=== PATIENT | male | born 1955 | race American Indian/Alaskan Native ===

== ENCOUNTER 2021-04-30 10:42 | Emergency (ER) | payer MEDICARE ==
--- NOTE | 2021-04-30 11:18 | Emergency Department Report ---
HPI - General Time Seen by Provider: 04/30/21 10:50 - HPI HPI: Room 25 The patient is a 65-year-old male present with a chief complaint of shortness of breath. The patient states prior to arrival he had fallen asleep in his rocking chair and he awakened feeling short of breath gasping for air. Patient denied chest pain or pain of any type. Patient states he tried to stand up but felt dizzy prompting him to call 911. Patient was transported to the ED and the patient currently denies shortness of breath. Patient has a history of dementia and is unable to tell me how long he was symptomatic. I asked the patient if his symptoms resolved before he arrived to the emergency department and the patient replies "I do not know." ED Past Medical Hx - Past Medical History Hx Hypertension: Yes Hx Diabetes: Yes Hx Dementia: Yes - Surgical History Additional Surgical History: Large ex lap wound present but patient is unaware of what surgery was performed and for what reason - Family History Family history: no significant - Social History Smoking Status: Former Smoker (None x15 years) Substance Use Type: Marijuana - Medications Home Medications: Home Medications Medication Instructions Recorded Confirmed Last Taken Type Meclizine [Antivert] 25 mg PO TID PRN #20 tablet 04/30/21 Unknown Rx ED Review of Systems ROS: Stated complaint: SOB/DIZZINESS Other details as noted in HPI Constitutional: no symptoms reported Eyes: denies: eye pain ENT: denies: throat pain Respiratory: shortness of breath Cardiovascular: denies: chest pain Endocrine: no symptoms reported Gastrointestinal: denies: abdominal pain Genitourinary: denies: dysuria Musculoskeletal: denies: back pain Neurological: denies: headache Physical Exam - Physical Exam Physical Exam: GENERAL: The patient is well-developed well-nourished male lying on stretcher not appearing to be in acute distress. [] HEENT: Normocephalic. Atraumatic. Extraocular motions are intact. Patient has moist mucous membranes. NECK: Supple. Trachea midline CHEST/LUNGS: Clear to auscultation. There is no respiratory distress noted. HEART/CARDIOVASCULAR: Regular. There is no tachycardia. There is no gallop rub or murmur. ABDOMEN: Abdomen is soft, nontender. Patient has normal bowel sounds. There is no abdominal distention. SKIN: There is no rash. There is no edema. There is no diaphoresis. NEURO: The patient is awake, alert, and oriented. The patient is cooperative. The patient has no focal neurologic deficits. The patient has normal speech. Cranial nerves II through XII grossly intact. GCS 15 MUSCULOSKELETAL: There is no evidence of acute injury. ED Medical Decision Making - Lab Data Result diagrams: 04/30/21 11:11 04/30/21 11:11 Laboratory Tests 04/30/21 04/30/21 04/30/21 11:03 11:11 11:11 WBC 4.5 RBC 4.78 Hgb 14.0 Hct 41.9 MCV 88 MCH 29 MCHC 34 RDW 14.2 Plt Count 235 Lymph % (Auto) 28.9 [place] % (Auto) 13.4 H Eos % (Auto) 2.2 Baso % (Auto) 0.9 Lymph # (Auto) 1.3 [place] # (Auto) 0.6 Eos # (Auto) 0.1 Baso # (Auto) 0.0 Seg Neutrophils % 54.6 Seg Neutrophils # 2.4 D-Dimer 247.74 H Sodium Potassium Chloride Carbon Dioxide Anion Gap BUN Creatinine Estimated GFR BUN/Creatinine Ratio Glucose POC Glucose 138 H Calcium Total Bilirubin AST ALT Alkaline Phosphatase Total Creatine Kinase CK-MB (CK-2) CK-MB (CK-2) Rel Index Troponin T NT-Pro-B Natriuret Pep Total Protein Albumin Albumin/Globulin Ratio 04/30/21 04/30/21 04/30/21 11:11 15:14 15:27 WBC RBC Hgb Hct MCV MCH MCHC RDW Plt Count Lymph % (Auto) [place] % (Auto) Eos % (Auto) Baso % (Auto) Lymph # (Auto) [place] # (Auto) Eos # (Auto) Baso # (Auto) Seg Neutrophils % Seg Neutrophils # D-Dimer Sodium 137 Potassium 4.3 Chloride 99.4 Carbon Dioxide 26 Anion Gap 16 BUN 6 L Creatinine 0.8 Estimated GFR > 60 BUN/Creatinine Ratio 8 Glucose 129 H POC Glucose 86 Calcium 10.5 H Total Bilirubin 0.30 AST 19 ALT 24 Alkaline Phosphatase 84 Total Creatine Kinase 117 CK-MB (CK-2) < 1.0 CK-MB (CK-2) Rel Index 0.8 Troponin T < 0.010 < 0.010 NT-Pro-B Natriuret Pep 16.00 Total Protein 7.6 Albumin 4.5 Albumin/Globulin Ratio 1.5 - EKG Data -: EKG Interpreted by Me EKG shows normal: sinus rhythm Rate: normal - EKG Data When compared to previous EKG there are: previous EKG unavailable Interpretation: other (No ischemic changes seen) - Radiology Data Radiology results: report reviewed (CT chest), image reviewed (Chest x-ray, CT chest) interpreted by me: Chest x-ray-no definite focal infiltrates, no pneumothorax. No foreign body seen [facility] [address] [id number] Cat Scan Report Signed Patient: MINISTERIO ZAVALA MR#: [id number] : 1955 Acct:[id number] Age/Sex: 65 / M ADM Date: 04/30/21 Loc: ED Attending Dr: Ordering Physician: SIHA POSADAS MD Date of Service: 04/30/21 Procedure(s): CT angio chest Accession Number(s): [id number] cc: ISHA POSADAS MD CTA CHEST WITH CONTRAST INDICATION : Shortness of breath OMNI 350 100ML . TECHNIQUE: Axial imaging performed through the chest, with contrast bolus timing set to maximize opacification of the pulmonary arteries. Sagittal and coronal reformatted images. 3-plane MIP reformatted images were obtained. All CT scans at this location are performed using CT dose reduction for ALARA by means of automated exposure control. 100 mL of intravenous contrast administered. COMPARISON: None FINDINGS: Bolus: Contrast bolus timing is adequate. PTE: No filling defect is present to suggest PTE. Mediastinum: Heart and great vessels appear normal. No pathologic mediastinal adenopathy. Lungs: The lungs are clear with no evidence for infiltrate, pleural fluid or pneumothorax. Minimal emphysematous changes are noted in the upper lobes. Bones: Degenerative changes in the spine with nothing acute. Upper abdomen: Limited imaging of the upper abdomen shows nothing acute. IMPRESSION: Negative for PTE. Clear lungs. Minimal emphysematous changes. Signer Name: Glen Gonzalez Jr, MD Signed: 04/30/2021 2:55 PM Workstation Name: [id number] Transcribed By: TTR Dictated By: GLEN GONZALEZ JR, MD Electronically Authenticated By: GLEN GONZALEZ JR, MD Signed Date/Time: 04/30/21 1915 DD/ 1446 TD/TT: Print Cancel - Differential Diagnosis Shortness of breath, ACS, bronchitis, PE, dysrhythmia Critical care attestation.: If time is entered above; I have spent that time in minutes in the direct care of this critically ill patient, excluding procedure time. ED Disposition Clinical Impression: Vertigo, Dementia Disposition: - TO HOME OR SELFCARE Is pt being admited?: No Does the pt Need Aspirin: No Condition: Stable Instructions: Dizziness, Ueah-hy-Snpy Additional Instructions: Return to the emergency department should you develop worsening symptoms, inability to tolerate food or liquids, high fever or any other concerns Prescriptions: Meclizine [Antivert] 25 mg PO TID PRN #20 tablet PRN Reason: Vertigo Referrals: MARGARITA SOLIS MD [Primary Care Provider] - 3-5 Days
--- NOTE | 2021-04-30 11:25 | XRay Report ---
CHEST 1 VIEW 04/30/2021 11:20 AM INDICATION / CLINICAL INFORMATION: Shortness of breath. COMPARISON: None available. FINDINGS: SUPPORT DEVICES: None. HEART / MEDIASTINUM: No significant abnormality. LUNGS / PLEURA: No significant pulmonary or pleural abnormality. No pneumothorax. ADDITIONAL FINDINGS: No significant additional findings. IMPRESSION: 1. No acute findings. Signer Name: Hosea Haro MD Signed: 04/30/2021 11:21 AM Workstation Name: [id number]
[2021-04-30 11:48] LABS: Alanine Aminotransferase 24 units/L (7-56); Albumin 4.5 g/dL (3.9-5); BUN/Creatinine Ratio 8; Blood Urea Nitrogen 6 mg/dL (9-20); Calcium 10.5 mg/dL (8.4-10.2); Hemolysis Index 54
[2021-04-30 11:51] LABS: Basophils % (Auto) 0.9 % (0.0-1.8); Eosinophils # (Auto) 0.1 K/mm3 (0.0-0.4); Eosinophils % (Auto) 2.2 % (0.0-4.3); Hematocrit 41.9 % (35.5-45.6); Lymphocytes # (Auto) 1.3 K/mm3 (1.2-5.4); Lymphocytes % (Auto) 28.9 % (13.4-35.0); Mean Corpuscular HGB Conc 34 % (32-34); Mean Corpuscular Volume 88 fl (84-94); Monocytes # (Auto) 0.6 K/mm3 (0.0-0.8); Monocytes % (Auto) 13.4 % (0.0-7.3); Platelet Count 235 K/mm3 (140-440); Red Blood Count 4.78 M/mm3 (3.65-5.03); Red Cell Distribution Width 14.2 % (13.2-15.2)
[2021-04-30 11:57] LABS: Creatine Kinase MB < 1.0 ng/mL (0.0-4.0)
--- NOTE | 2021-04-30 14:59 | Cat Scan Report ---
CTA CHEST WITH CONTRAST INDICATION : Shortness of breath OMNI 350 100ML . TECHNIQUE: Axial imaging performed through the chest, with contrast bolus timing set to maximize opa cification of the pulmonary arteries. Sagittal and coronal reformatted images. 3-plane MIP reformatte d images were obtained. All CT scans at this location are performed using CT dose reduction for ALAR A by means of automated exposure control. 100 mL of intravenous contrast administered. COMPARISON: None FINDINGS: Bolus: Contrast bolus timing is adequate. PTE: No filling defect is present to suggest PTE. Mediastinum: Heart and great vessels appear normal. No pathologic mediastinal adenopathy. Lungs: The lungs are clear with no evidence for infiltrate, pleural fluid or pneumothorax. Minimal e mphysematous changes are noted in the upper lobes. Bones: Degenerative changes in the spine with nothing acute. Upper abdomen: Limited imaging of the upper abdomen shows nothing acute. IMPRESSION: Negative for PTE. Clear lungs. Minimal emphysematous changes. Signer Name: Glen Gonzalez Jr, MD Signed: 04/30/2021 2:55 PM Workstation Name: [id number]
[2021-04-30] MEDS ORDERED: MECLIZINE 25 MG TAB PO ONE (16:44)
--- NOTE | 2021-04-30 20:30 | Cat Scan Report ---
CT head/brain wo con INDICATION: Dizziness. TECHNIQUE: Routine CT head. All CT scans at this location are performed using CT dose reduction for A TAMELA by means of automated exposure control. COMPARISON: None. FINDINGS: Intracranial: Mae-white matter differentiation is maintained. No intracranial hemorrhage. No extra a xial collection. No hydrocephalus. No herniation. Sinuses: Paranasal sinuses and mastoid air cells are essentially clear. Orbits: Globes are intact. Calvarium: No acute fracture. IMPRESSION: 1. No acute intracranial abnormality. Signer Name: Joaquín Rhodes MD Signed: 04/30/2021 8:25 PM Workstation Name: [id number]
[2021-04-30 21:10] VITALS: BP 117/59
--- NOTE | 2021-05-02 12:12 | Electrocardiograph Report ---
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
== END 2021-04-30 22:21 | disposition home or self-care (01) ==
LOC: ED 10:42
DX: R42 Dizziness and giddiness (principal); F03.90 Unspecified dementia, unspecified severity, without behavioral disturbance, psychotic disturbance, mood disturbance, and anxiety; I10 Essential (primary) hypertension; E11.9 Type 2 diabetes mellitus without complications; F12.10 Cannabis abuse, uncomplicated; Z87.891 Personal history of nicotine dependence; Z79.899 Other long term (current) drug therapy
CPT/HCPCS: 36415; 70450; 71045; 71275; 80053; 82550; 82553; 82962; 83880; 84484; 85025; 85379; 93005; 99285; Q9967

== ENCOUNTER 2021-08-10 10:13 | Emergency (ER) | payer MEDICARE ==
[2021-08-10] MEDS ORDERED: DEXTROSE 50% IN WATER (25GM) 50 ML VIAL IV PRN (10:42)
--- NOTE | 2021-08-10 10:54 | Emergency Department Report ---
ED General Adult HPI - General Chief complaint: Weakness Stated complaint: SLUTTERING/WEAKNESS PUI?: No Time Seen by Provider: 08/10/21 10:40 Source: patient, family, EMS (Verbal report received from emergency medical ser vices. EMS documentation not available at time of chart dictation ), RN notes reviewed, old records reviewed Mode of arrival: Stretcher Limitations: Other (Patient is demented and a poor historian) - History of Present Illness Initial comments: The patient is a 65-year-old gentleman. The patient has a history of dementia and diabetes. He follows with the [facility] medical [facility]. Most of the history is obtained from EMS, and by speaking to his , Ms. Erna Gomes. Apparently, the patient was confused this morning, and stuttering. He was also found to have evidence of hypoglycemia. As per his , he is currently seeing an outpatient neurologist, it was recently started on Seroquel/quetiapine for stuttering, dementia, and depression. denies headache, chest pain, shortness of breath, nausea, vomiting, diarrhea, fevers and chills and urinary symptoms. In the emergency room, his corroborates that the patient appears to be at his demented baseline. The patient himself is pleasantly confused. He denies physical pain. The patient is not able to describe qualitative nature of symptoms, exacerbating factors, relieving factors or aggravating factors. EMS reported Accu-Chek was low in the field. In the emergency room, Accu-Chek is within acceptable limits. -: This morning Consistency: now resolved Improves with: medication Associated Symptoms: denies other symptoms - Related Data Home Medications Medication Instructions Recorded Confirmed Last Taken AtorvaSTATin 40 mg PO HS 08/10/21 08/10/21 Unknown Lisinopril 20 mg PO DAILY 08/10/21 08/10/21 Unknown QUEtiapine 25 mg PO HS 08/10/21 08/10/21 Unknown amLODIPine 10 mg PO DAILY 08/10/21 08/10/21 Unknown metFORMIN 500 mg PO BID 08/10/21 08/10/21 Unknown Allergies Allergy/AdvReac Type Severity Reaction Status Date / Time No Known Allergies Allergy Unverified 04/30/21 12:44 ED Review of Systems ROS: Stated complaint: SLUTTERING/WEAKNESS Other details as noted in HPI Comment: Per Constitutional: denies: fever Eyes: denies: eye discharge ENT: denies: epistaxis Respiratory: denies: cough Cardiovascular: denies: chest pain Gastrointestinal: denies: abdominal pain Genitourinary: denies: dysuria, frequency Neurological: confusion (Baseline) ED Past Medical Hx - Past Medical History Previous Medical History?: Yes Hx Hypertension: Yes Hx Diabetes: Yes Hx Dementia: Yes Additional medical history: dementia, vertigo - Surgical History Past Surgical History?: Yes Additional Surgical History: Large ex lap wound present but patient is unaware of what surgery was performed and for what reason - Social History Smoking Status: Former Smoker (None x15 years) Substance Use Type: Marijuana - Medications Home Medications: Home Medications Medication Instructions Recorded Confirmed Last Taken Type AtorvaSTATin 40 mg PO HS 08/10/21 08/10/21 Unknown History Lisinopril 20 mg PO DAILY 08/10/21 08/10/21 Unknown History QUEtiapine 25 mg PO HS 08/10/21 08/10/21 Unknown History amLODIPine 10 mg PO DAILY 08/10/21 08/10/21 Unknown History metFORMIN 500 mg PO BID 08/10/21 08/10/21 Unknown History ED Physical Exam - General Limitations: Other (Demented and confused) General appearance: alert, in no apparent distress - Head Head exam: Present: atraumatic, normocephalic - Eye Eye exam: Present: normal appearance, EOMI. Absent: nystagmus - ENT ENT exam: Present: normal exam, normal orophraynx, mucous membranes moist, normal external ear exam - Neck Neck exam: Present: normal inspection, full ROM. Absent: tenderness, meningismus - Respiratory Respiratory exam: Present: normal lung sounds bilaterally. Absent: respiratory distress, wheezes, rales, rhonchi, stridor, decreased breath sounds - Cardiovascular Cardiovascular Exam: Present: regular rate, normal rhythm, normal heart sounds. Absent: bradycardia, tachycardia, irregular rhythm, systolic murmur, diastolic murmur, rubs, gallop - GI/Abdominal GI/Abdominal exam: Present: soft. Absent: distended, tenderness, guarding, rebound, rigid, pulsatile mass - Rectal Rectal exam: Present: deferred - exam: Present: normal inspection External exam: Present: normal external exam, other (Chaperoned by nurse Nathan Nesbitt) - Extremities Exam Extremities exam: Present: normal inspection, full ROM, other (2+ pulses noted in the bilateral upper and lower extremities. There is no palpable cord. negative Homans sign. Muscular compartments are soft. The pelvis is stable.). Absent: pedal edema, calf tenderness - Back Exam Back exam: Present: normal inspection, full ROM. Absent: tenderness, CVA tenderness (R), CVA tenderness (L), muscle spasm, vertebral tenderness, rash noted - Neurological Exam Neurological exam: Present: altered (Patient is alert to name. Does not know the month. Follows commands. Knows that he is at a hospital.), normal gait, other (2+ pulses noted in the bilateral upper and lower extremities. There is no palpable cord. negative Homans sign. Muscular compartments are soft. The pelvis is stable.). Absent: motor sensory deficit - Psychiatric Psychiatric exam: Present: anxious - Skin Skin exam: Present: warm, dry, intact, normal color. Absent: rash ED Course Vital Signs 08/10/21 08/10/21 10:59 11:28 Temperature 98.8 F 98.9 F Pulse Rate 86 Respiratory 16 Rate Blood Pressure 149/82 [Left] O2 Sat by Pulse 98 Oximetry ED Medical Decision Making - Lab Data Result diagrams: 08/10/21 11:32 08/10/21 11:32 Vital Signs 08/10/21 08/10/21 10:59 11:28 Temperature 98.8 F 98.9 F Pulse Rate 86 Respiratory 16 Rate Blood Pressure 149/82 [Left] O2 Sat by Pulse 98 Oximetry Lab Results 08/10/21 08/10/21 08/10/21 Range/Units 11:22 11:26 11:32 WBC (4.5-11.0) K/mm3 RBC (3.65-5.03) M/mm3 Hgb (11.8-15.2) gm/dl Hct (35.5-45.6) % MCV (84-94) fl MCH (28-32) pg MCHC (32-34) % RDW (13.2-15.2) % Plt Count (140-440) K/mm3 Lymph % (Auto) (13.4-35.0) % [place] % (Auto) (0.0-7.3) % Eos % (Auto) (0.0-4.3) % Baso % (Auto) (0.0-1.8) % Lymph # (Auto) (1.2-5.4) K/mm3 [place] # (Auto) (0.0-0.8) K/mm3 Eos # (Auto) (0.0-0.4) K/mm3 Baso # (Auto) (0.0-0.1) K/mm3 Seg Neutrophils % (40.0-70.0) % Seg Neutrophils # (1.8-7.7) K/mm3 PT (12.2-14.9) Sec. INR (0.87-1.13) Sodium 136 L (137-145) mmol/L Potassium 4.2 (3.6-5.0) mmol/L Chloride 100.4 (98-107) mmol/L Carbon Dioxide 24 (22-30) mmol/L Anion Gap 16 mmol/L BUN 8 L (9-20) mg/dL Creatinine 0.8 (0.8-1.3) mg/dL Estimated GFR > 60 ml/min BUN/Creatinine Ratio 10 % Glucose 170 H (75-100) mg/dL POC Glucose 157 H (70-105) mg/dL Lactic Acid (0.7-2.0) mmol/L Calcium 10.0 (8.4-10.2) mg/dL Magnesium (1.7-2.3) mg/dL Total Bilirubin 0.30 (0.1-1.2) mg/dL AST 13 (5-40) units/L ALT 24 (7-56) units/L Alkaline Phosphatase 92 (35-129) units/L Total Creatine Kinase (55-170) units/L Troponin T (0.00-0.029) ng/mL Total Protein 7.9 (6.3-8.2) g/dL Albumin 4.3 (3.9-5) g/dL Albumin/Globulin Ratio 1.2 % TSH (0.270-4.200) mlU/mL Urine Color Straw (Yellow) Urine Turbidity Clear (Clear) Urine pH 8.0 H (5.0-7.0) Ur Specific [place] 1.006 (1.003-1.030) Urine Protein <15 mg/dl (Negative) mg/dL Urine Glucose (UA) Neg (Negative) mg/dL Urine Ketones Neg (Negative) mg/dL Urine Blood Neg (Negative) Urine Nitrite Neg (Negative) Urine Bilirubin Neg (Negative) Urine Urobilinogen < 2.0 (<2.0) mg/dL Ur Leukocyte Esterase Neg (Negative) Urine WBC (Auto) < 1.0 (0.0-6.0) /HPF Urine RBC (Auto) 1.0 (0.0-6.0) /HPF Salicylates (2.8-20.0) mg/dL Acetaminophen (10.0-30.0) ug/mL 08/10/21 08/10/21 08/10/21 Range/Units 11:32 11:32 11:32 WBC 4.4 L (4.5-11.0) K/mm3 RBC 4.94 (3.65-5.03) M/mm3 Hgb 14.3 (11.8-15.2) gm/dl Hct 43.0 (35.5-45.6) % MCV 87 (84-94) fl MCH 29 (28-32) pg MCHC 33 (32-34) % RDW 13.6 (13.2-15.2) % Plt Count 285 (140-440) K/mm3 Lymph % (Auto) 28.7 (13.4-35.0) % [place] % (Auto) 11.0 H (0.0-7.3) % Eos % (Auto) 3.0 (0.0-4.3) % Baso % (Auto) 2.2 H (0.0-1.8) % Lymph # (Auto) 1.3 (1.2-5.4) K/mm3 [place] # (Auto) 0.5 (0.0-0.8) K/mm3 Eos # (Auto) 0.1 (0.0-0.4) K/mm3 Baso # (Auto) 0.1 (0.0-0.1) K/mm3 Seg Neutrophils % 55.1 (40.0-70.0) % Seg Neutrophils # 2.4 (1.8-7.7) K/mm3 PT 13.8 (12.2-14.9) Sec. INR 0.96 (0.87-1.13) Sodium (137-145) mmol/L Potassium (3.6-5.0) mmol/L Chloride (98-107) mmol/L Carbon Dioxide (22-30) mmol/L Anion Gap mmol/L BUN (9-20) mg/dL Creatinine (0.8-1.3) mg/dL Estimated GFR ml/min BUN/Creatinine Ratio % Glucose (75-100) mg/dL POC Glucose (70-105) mg/dL Lactic Acid (0.7-2.0) mmol/L Calcium (8.4-10.2) mg/dL Magnesium 1.90 (1.7-2.3) mg/dL Total Bilirubin (0.1-1.2) mg/dL AST (5-40) units/L ALT (7-56) units/L Alkaline Phosphatase (35-129) units/L Total Creatine Kinase 103 (55-170) units/L Troponin T < 0.010 (0.00-0.029) ng/mL Total Protein (6.3-8.2) g/dL Albumin (3.9-5) g/dL Albumin/Globulin Ratio % TSH (0.270-4.200) mlU/mL Urine Color (Yellow) Urine Turbidity (Clear) Urine pH (5.0-7.0) Ur Specific [place] (1.003-1.030) Urine Protein (Negative) mg/dL Urine Glucose (UA) (Negative) mg/dL Urine Ketones (Negative) mg/dL Urine Blood (Negative) Urine Nitrite (Negative) Urine Bilirubin (Negative) Urine Urobilinogen (<2.0) mg/dL Ur Leukocyte Esterase (Negative) Urine WBC (Auto) (0.0-6.0) /HPF Urine RBC (Auto) (0.0-6.0) /HPF Salicylates (2.8-20.0) mg/dL Acetaminophen (10.0-30.0) ug/mL 08/10/21 08/10/21 08/10/21 Range/Units 11:32 11:32 11:32 WBC (4.5-11.0) K/mm3 RBC (3.65-5.03) M/mm3 Hgb (11.8-15.2) gm/dl Hct (35.5-45.6) % MCV (84-94) fl MCH (28-32) pg MCHC (32-34) % RDW (13.2-15.2) % Plt Count (140-440) K/mm3 Lymph % (Auto) (13.4-35.0) % [place] % (Auto) (0.0-7.3) % Eos % (Auto) (0.0-4.3) % Baso % (Auto) (0.0-1.8) % Lymph # (Auto) (1.2-5.4) K/mm3 [place] # (Auto) (0.0-0.8) K/mm3 Eos # (Auto) (0.0-0.4) K/mm3 Baso # (Auto) (0.0-0.1) K/mm3 Seg Neutrophils % (40.0-70.0) % Seg Neutrophils # (1.8-7.7) K/mm3 PT (12.2-14.9) Sec. INR (0.87-1.13) Sodium (137-145) mmol/L Potassium (3.6-5.0) mmol/L Chloride (98-107) mmol/L Carbon Dioxide (22-30) mmol/L Anion Gap mmol/L BUN (9-20) mg/dL Creatinine (0.8-1.3) mg/dL Estimated GFR ml/min BUN/Creatinine Ratio % Glucose (75-100) mg/dL POC Glucose (70-105) mg/dL Lactic Acid (0.7-2.0) mmol/L Calcium (8.4-10.2) mg/dL Magnesium (1.7-2.3) mg/dL Total Bilirubin (0.1-1.2) mg/dL AST (5-40) units/L ALT (7-56) units/L Alkaline Phosphatase (35-129) units/L Total Creatine Kinase (55-170) units/L Troponin T (0.00-0.029) ng/mL Total Protein (6.3-8.2) g/dL Albumin (3.9-5) g/dL Albumin/Globulin Ratio % TSH 1.030 (0.270-4.200) mlU/mL Urine Color (Yellow) Urine Turbidity (Clear) Urine pH (5.0-7.0) Ur Specific [place] (1.003-1.030) Urine Protein (Negative) mg/dL Urine Glucose (UA) (Negative) mg/dL Urine Ketones (Negative) mg/dL Urine Blood (Negative) Urine Nitrite (Negative) Urine Bilirubin (Negative) Urine Urobilinogen (<2.0) mg/dL Ur Leukocyte Esterase (Negative) Urine WBC (Auto) (0.0-6.0) /HPF Urine RBC (Auto) (0.0-6.0) /HPF Salicylates < 0.3 L (2.8-20.0) mg/dL Acetaminophen 5.0 L (10.0-30.0) ug/mL 08/10/21 Range/Units 11:32 WBC (4.5-11.0) K/mm3 RBC (3.65-5.03) M/mm3 Hgb (11.8-15.2) gm/dl Hct (35.5-45.6) % MCV (84-94) fl MCH (28-32) pg MCHC (32-34) % RDW (13.2-15.2) % Plt Count (140-440) K/mm3 Lymph % (Auto) (13.4-35.0) % [place] % (Auto) (0.0-7.3) % Eos % (Auto) (0.0-4.3) % Baso % (Auto) (0.0-1.8) % Lymph # (Auto) (1.2-5.4) K/mm3 [place] # (Auto) (0.0-0.8) K/mm3 Eos # (Auto) (0.0-0.4) K/mm3 Baso # (Auto) (0.0-0.1) K/mm3 Seg Neutrophils % (40.0-70.0) % Seg Neutrophils # (1.8-7.7) K/mm3 PT (12.2-14.9) Sec. INR (0.87-1.13) Sodium (137-145) mmol/L Potassium (3.6-5.0) mmol/L Chloride (98-107) mmol/L Carbon Dioxide (22-30) mmol/L Anion Gap mmol/L BUN (9-20) mg/dL Creatinine (0.8-1.3) mg/dL Estimated GFR ml/min BUN/Creatinine Ratio % Glucose (75-100) mg/dL POC Glucose (70-105) mg/dL Lactic Acid 0.90 (0.7-2.0) mmol/L Calcium (8.4-10.2) mg/dL Magnesium (1.7-2.3) mg/dL Total Bilirubin (0.1-1.2) mg/dL AST (5-40) units/L ALT (7-56) units/L Alkaline Phosphatase (35-129) units/L Total Creatine Kinase (55-170) units/L Troponin T (0.00-0.029) ng/mL Total Protein (6.3-8.2) g/dL Albumin (3.9-5) g/dL Albumin/Globulin Ratio % TSH (0.270-4.200) mlU/mL Urine Color (Yellow) Urine Turbidity (Clear) Urine pH (5.0-7.0) Ur Specific [place] (1.003-1.030) Urine Protein (Negative) mg/dL Urine Glucose (UA) (Negative) mg/dL Urine Ketones (Negative) mg/dL Urine Blood (Negative) Urine Nitrite (Negative) Urine Bilirubin (Negative) Urine Urobilinogen (<2.0) mg/dL Ur Leukocyte Esterase (Negative) Urine WBC (Auto) (0.0-6.0) /HPF Urine RBC (Auto) (0.0-6.0) /HPF Salicylates (2.8-20.0) mg/dL Acetaminophen (10.0-30.0) ug/mL - EKG Data -: EKG Interpreted by Mo EKG shows normal: sinus rhythm Rate: normal - EKG Data 08/10/21 12:53 The EKG is interpreted at 11: 08 Sinus rhythm, 72 bpm. Left axis deviation, normal P wave axis. Borderline left anterior fascicular block, motion artifact, and poor R wave progression. Low voltage in the lateral leads. This is an abnormal EKG. This is not a STEMI. This appears unchanged when compared to prior EKG from 04/30/2021 - Radiology Data Radiology results: pending, report reviewed, image reviewed CT HEAD WITHOUT CONTRAST INDICATION / CLINICAL INFORMATION: Weakness. TECHNIQUE: All CT scans at this location are performed using CT dose reduction for ALARA by means of automated exposure control. COMPARISON: 04/30/2021 FINDINGS: HEMORRHAGE: None. EXTRA-AXIAL SPACES: Moderately prominent likely related to cortical atrophy. VENTRICULAR SYSTEM: Normal in size and morphology for the patient's age. CEREBRAL PARENCHYMA: No significant abnormality. No acute territorial infarct. MIDLINE SHIFT / HERNIATION: None. CEREBELLUM / BRAINSTEM: No significant abnormality. ORBITS: Normal as visualized. SOFT TISSUES: No significant abnormality. SKULL: No significant abnormality. PARANASAL SINUSES / MASTOID AIR CELLS: Normal as visualized. ADDITIONAL FINDINGS: None. IMPRESSION: 1. There is cortical atrophy. No acute intracranial abnormality. Signer Name: Feliciano Carter MD Signed: 08/10/2021 11:23 AM Workstation Name: [id number] CHEST 1 VIEW 08/10/2021 10:50 AM INDICATION / CLINICAL INFORMATION: Weakness. COMPARISON: 04/30/2021 FINDINGS: SUPPORT DEVICES: None. HEART / MEDIASTINUM: No significant abnormality. LUNGS / PLEURA: No significant pulmonary or pleural abnormality. No pneumothorax. ADDITIONAL FINDINGS: No significant additional findings. IMPRESSION: 1. No acute findings. Signer Name: Feliciano Carter MD Signed: 08/10/2021 10:16 AM Workstation Name: [id number] - Medical Decision Making Differential diagnosis, including but not limited to: Hypoglycemia, now resolved, thyroid derangement, pneumonia, urinary tract infection, electrolyte derangement, dementia Assessment and plan 65-year-old gentleman, with a history of diabetes, hypertension, high cholest jean and dementia. He does not take glipizide, glyburide, or sulfonylureas. Medications include NovoLog insulin, Metformin, and insulin pump. His , Ms. Lakeisha Gomes; [phone] is currently at the bedside. The patient's primary care doctor is Dr. Acosta with the [facility] group. The patient recently started seeing a neurologist for speech stuttering, as well as dementia and depression. He was recently started on Seroquel/quetiapine. His states that there is no fever, nausea, vomiting or diarrhea, cough, or ataxia. She states that the the patient appears to be at his mental status baseline at this time. She states that she is able to monitor this patient's glucose at home comfortably. She is aware of the signs of hypoglycemia. I discontinued the patient's insulin pump here in the emergency room, placed it in a specimen bag, and handed it to the patient's . He may continue Metformin, insulin as needed, and an appropriate diabetic diet. Laboratory studies were unremarkable for emergent findings. Noncontrast CT scan of the brain, and x-ray the chest were unremarkable for acute findings. Patient is observed in the ER for hours without clinical deterioration, or recurrent hypoglycemia. On final reassessment, he is resting comfortably on her stretcher, in no acute distress, with his at the bedside, who corroborates that he is at baseline. He can follow-up with his outpatient neurologist, Dr. Proctor for his history of stuttering speech and dementia. He may follow-up with his primary care doctor for his chronic medical issues. Return precautions are discussed with the patient's . She articulated understanding. She feels comfortable to take him home Critical care attestation.: If time is entered above; I have spent that time in minutes in the direct care of this critically ill patient, excluding procedure time. ED Disposition Clinical Impression: Dementia, Hypertension, History of hypoglycemia Disposition: 01 HOME / SELF CARE / HOMELESS Is pt being admited?: No Does the pt Need Aspirin: No Condition: Good Instructions: Preventing Hypoglycemia, Dementia Caregiver Guide, Hypertension (ED) Additional Instructions: Please continue current outpatient medications. Please make certain to consume an appropriate diabetic diet. The patient's insulin pump was discontinued and removed in the emergency room, placed in a specimen bag, and given to the patient's . We recommend that the patient's follow-up with primary care doctor with the patient, in the next 48 to 72 hours for repeat evaluation, and repeat calibration of insulin pump. Please make certain to check sugar at least once every 4-6 hours at home. Please make certain to have the patient care for by a competent adult at all times. Please have your primary care doctor contact the medical records department to obtain copies of laboratory studies and radiology studies to follow-up on nonemergent incidental findings. Please follow-up with your neurologist as scheduled. Please return to the emergency room right away with new pain, worsened pain, migration of pain, projectile vomiting, change in mental status, confusion, inab ility to tolerate liquid feeds, homicidality, suicidality, change in mental status, confusion, or any new, worsened or different symptoms not present on the initial emergency room evaluation. Referrals: [facility] [Provider Group] - 3-5 Days
[2021-08-10 11:03] VITALS: BP 149/82
--- NOTE | 2021-08-10 11:20 | XRay Report ---
CHEST 1 VIEW 08/10/2021 10:50 AM INDICATION / CLINICAL INFORMATION: Weakness. COMPARISON: 04/30/2021 FINDINGS: SUPPORT DEVICES: None. HEART / MEDIASTINUM: No significant abnormality. LUNGS / PLEURA: No significant pulmonary or pleural abnormality. No pneumothorax. ADDITIONAL FINDINGS: No significant additional findings. IMPRESSION: 1. No acute findings. Signer Name: Feliciano Carter MD Signed: 08/10/2021 11:16 AM Workstation Name: [id number]
[2021-08-10 11:44] LABS: Bilirubin,Urine NEG (Negative); Blood,Urine NEG (Negative); Color,Urine Straw (Yellow); Protein,Urine <15 mg/dL mg/dL (Negative); Urobilinogen,Urine < 2.0 mg/dL (<2.0)
[2021-08-10 12:01] LABS: WBC,Urine < 1.0 /HPF (0.0-6.0)
[2021-08-10 12:01] LABS: Basophils # (Auto) 0.1 K/mm3 (0.0-0.1); Basophils % (Auto) 2.2 % (0.0-1.8); Eosinophils # (Auto) 0.1 K/mm3 (0.0-0.4); Hemoglobin 14.3 gm/dl (11.8-15.2); Lymphocytes # (Auto) 1.3 K/mm3 (1.2-5.4); Lymphocytes % (Auto) 28.7 % (13.4-35.0); Mean Corpuscular HGB Conc 33 % (32-34); Mean Corpuscular Volume 87 fl (84-94); Monocytes # (Auto) 0.5 K/mm3 (0.0-0.8); Platelet Count 285 K/mm3 (140-440); Red Blood Count 4.94 M/mm3 (3.65-5.03); Red Cell Distribution Width 13.6 % (13.2-15.2)
[2021-08-10 12:12] LABS: Alanine Aminotransferase 24 units/L (7-56); Albumin 4.3 g/dL (3.9-5); BUN/Creatinine Ratio 10; Blood Urea Nitrogen 8 mg/dL (9-20); Hemolysis Index 9; INR 0.96 (0.87-1.13)
--- NOTE | 2021-08-10 12:27 | Cat Scan Report ---
CT HEAD WITHOUT CONTRAST INDICATION / CLINICAL INFORMATION: Weakness. TECHNIQUE: All CT scans at this location are performed using CT dose reduction for ALARA by means of automated exposure control. COMPARISON: 04/30/2021 FINDINGS: HEMORRHAGE: None. EXTRA-AXIAL SPACES: Moderately prominent likely related to cortical atrophy. VENTRICULAR SYSTEM: Normal in size and morphology for the patient's age. CEREBRAL PARENCHYMA: No significant abnormality. No acute territorial infarct. MIDLINE SHIFT / HERNIATION: None. CEREBELLUM / BRAINSTEM: No significant abnormality. ORBITS: Normal as visualized. SOFT TISSUES: No significant abnormality. SKULL: No significant abnormality. PARANASAL SINUSES / MASTOID AIR CELLS: Normal as visualized. ADDITIONAL FINDINGS: None. IMPRESSION: 1. There is cortical atrophy. No acute intracranial abnormality. Signer Name: Feliciano Carter MD Signed: 08/10/2021 12:23 PM Workstation Name: [id number]
--- NOTE | 2021-08-13 18:46 | Electrocardiograph Report ---
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
== END 2021-08-10 13:34 | disposition home or self-care (01) ==
LOC: ED 10:13
DX: F03.90 Unspecified dementia, unspecified severity, without behavioral disturbance, psychotic disturbance, mood disturbance, and anxiety (principal); I10 Essential (primary) hypertension; E11.649 Type 2 diabetes mellitus with hypoglycemia without coma; R79.1 Abnormal coagulation profile; F12.90 Cannabis use, unspecified, uncomplicated; Z87.891 Personal history of nicotine dependence; Z79.84 Long term (current) use of oral hypoglycemic drugs; Z79.899 Other long term (current) drug therapy
CPT/HCPCS: 36415; 70450; 71045; 80053; 80320; 81001; 82140; 82550; 82962; 83735; 84443; 84484; 85025; 85610; 93005; 99285; G0480

== ENCOUNTER 2021-08-27 09:50 | Emergency (ER) | payer MEDICARE ==
[2021-08-27 09:56] VITALS: BP 169/92
--- NOTE | 2021-08-27 10:10 | Event Note ---
ED Screening Note Date of service: 08/27/21 Time: 10:09 ED Screening Note: Patient arrived via EMS for low blood sugar States he was not feeling right and woke up out of sleep and checked his glucose and it was 58 Patient is a type I diabetic with an insulin pump States he began to " freak out" and called 911 Patient states he is just not feeling right Denies history of anxiety or panic attacks Blood glucose reported at 240 This initial assessment/diagnostic orders/clinical plan/treatment(s) is/are subject to change based on patients health status, clinical progression and re- assessment by fellow clinical providers in the ED. Further treatment and workup at subsequent clinical providers discretion. Patient/guardian urged not to elope from the ED as their condition may be serious if not clinically assessed and managed. Initial orders include: Labs EKG Chest x-ray UA
--- NOTE | 2021-08-27 10:54 | XRay Report ---
CHEST 2 VIEWS INDICATION: shortness of breath. COMPARISON: 08/10/2021 FINDINGS: Support devices: None. Heart: Within normal limits. Lungs/pleura: No acute air space or interstitial disease. No pneumothorax. Additional findings: None. IMPRESSION: Unremarkable chest films. No change since 09/10/2021. Signer Name: Glen Gonzalez Jr, MD Signed: 08/27/2021 10:49 AM Workstation Name: [id number]
[2021-08-27 11:42] LABS: Basophils # (Auto) 0.1 K/mm3 (0.0-0.1); Basophils % (Auto) 0.7 % (0.0-1.8); Eosinophils # (Auto) 0.1 K/mm3 (0.0-0.4); Eosinophils % (Auto) 1.2 % (0.0-4.3); Hematocrit 44.2 % (35.5-45.6); Hemoglobin 14.1 gm/dl (11.8-15.2); Lymphocytes # (Auto) 1.1 K/mm3 (1.2-5.4); Mean Corpuscular HGB Conc 32 % (32-34); Mean Corpuscular Volume 88 fl (84-94); Monocytes # (Auto) 0.7 K/mm3 (0.0-0.8); Monocytes % (Auto) 10.6 % (0.0-7.3); Platelet Count 273 K/mm3 (140-440); Red Blood Count 5.03 M/mm3 (3.65-5.03); Red Cell Distribution Width 13.9 % (13.2-15.2)
[2021-08-27 12:07] LABS: Alanine Aminotransferase 25 units/L (7-56); Albumin 4.8 g/dL (3.9-5); BUN/Creatinine Ratio 10; Blood Urea Nitrogen 8 mg/dL (9-20); Calcium 10.1 mg/dL (8.4-10.2); Hemolysis Index 20
--- NOTE | 2021-08-27 12:26 | Emergency Department Report ---
HPI - General Chief Complaint: Medical Clearance Time Seen by Provider: 08/27/21 10:07 - [facility] HPI: Reassessment 6 The patient is 65-year-old male present with a chief complaint of hypoglycemia the patient has a history of diabetes and dementia and states he felt dizzy and shaky this morning please checked his blood sugar and found out he was low at 58. Patient states he cannot remember he took any insulin or ate breakfast this morning. The patient called EMS while in the ED patient was found to have a blood glucose of 227. Patient denies nausea/vomiting, fever or cough ED Past Medical Hx - Past Medical History Hx Hypertension: Yes Hx Diabetes: Yes Hx Dementia: Yes Additional medical history: dementia, vertigo - Surgical History Additional Surgical History: Large ex lap wound present but patient is unaware of what surgery was performed and for what reason - Family History Family history: no significant - Social History Smoking Status: Former Smoker (None x10-15 years) Substance Use Type: None (Denies illicit drug use) - Medications Home Medications: Home Medications Medication Instructions Recorded Confirmed Last Taken Type AtorvaSTATin 40 mg PO HS 08/10/21 08/10/21 Unknown History Lisinopril 20 mg PO DAILY 08/10/21 08/10/21 Unknown History QUEtiapine 25 mg PO HS 08/10/21 08/10/21 Unknown History amLODIPine 10 mg PO DAILY 08/10/21 08/10/21 Unknown History metFORMIN 500 mg PO BID 08/10/21 08/10/21 Unknown History ED Review of Systems ROS: Stated complaint: Need to be checked out Other details as noted in HPI Constitutional: denies: fever Eyes: denies: eye pain ENT: denies: throat pain Respiratory: no symptoms reported Cardiovascular: denies: chest pain Endocrine: no symptoms reported Gastrointestinal: denies: abdominal pain Musculoskeletal: denies: back pain Neurological: denies: headache Physical Exam - Physical Exam Vital Signs: Vital Signs 08/27/21 09:55 Temperature 98.1 F Pulse Rate 103 H Respiratory 15 Rate Blood Pressure 169/92 [Left] O2 Sat by Pulse 99 Oximetry Physical Exam: GENERAL: The patient is well-developed well-nourished male sitting in chair not appearing to be in acute distress. [] HEENT: Normocephalic. Atraumatic. Extraocular motions are intact. Patient has moist mucous membranes. NECK: Supple. Trachea midline CHEST/LUNGS: Clear to auscultation. There is no respiratory distress noted. HEART/CARDIOVASCULAR: Regular. There is no tachycardia. There is no gallop rub or murmur. ABDOMEN: Abdomen is soft, nontender. Patient has normal bowel sounds. There is no abdominal distention. SKIN: There is no rash. There is no edema. There is no diaphoresis. NEURO: The patient is awake and alert. The patient is cooperative. The patient has no focal neurologic deficits. The patient has normal speech and gait. Cranial nerves II through XII grossly intact MUSCULOSKELETAL: There is no evidence of acute injury. ED Course Vital Signs 08/27/21 09:55 Temperature 98.1 F Pulse Rate 103 H Respiratory 15 Rate Blood Pressure 169/92 [Left] O2 Sat by Pulse 99 Oximetry ED Medical Decision Making - Lab Data Result diagrams: 08/27/21 11:17 08/27/21 11:17 Laboratory Tests 08/27/21 08/27/21 08/27/21 11:02 11:17 11:17 WBC 6.9 RBC 5.03 Hgb 14.1 Hct 44.2 MCV 88 MCH 28 MCHC 32 RDW 13.9 Plt Count 273 Lymph % (Auto) 16.0 [place] % (Auto) 10.6 H Eos % (Auto) 1.2 Baso % (Auto) 0.7 Lymph # (Auto) 1.1 L [place] # (Auto) 0.7 Eos # (Auto) 0.1 Baso # (Auto) 0.1 Seg Neutrophils % 71.5 H Seg Neutrophils # 4.9 Sodium 138 Potassium 3.8 Chloride 100.8 Carbon Dioxide 22 Anion Gap 19 BUN 8 L Creatinine 0.8 Estimated GFR > 60 BUN/Creatinine Ratio 10 Glucose 236 H POC Glucose 227 H Calcium 10.1 Total Bilirubin 0.30 AST 13 ALT 25 Alkaline Phosphatase 106 Troponin T < 0.010 Total Protein 8.3 H Albumin 4.8 Albumin/Globulin Ratio 1.4 08/27/21 12:19 WBC RBC Hgb Hct MCV MCH MCHC RDW Plt Count Lymph % (Auto) [place] % (Auto) Eos % (Auto) Baso % (Auto) Lymph # (Auto) [place] # (Auto) Eos # (Auto) Baso # (Auto) Seg Neutrophils % Seg Neutrophils # Sodium Potassium Chloride Carbon Dioxide Anion Gap BUN Creatinine Estimated GFR BUN/Creatinine Ratio Glucose POC Glucose 206 H Calcium Total Bilirubin AST ALT Alkaline Phosphatase Troponin T Total Protein Albumin Albumin/Globulin Ratio - EKG Data -: EKG Interpreted by Me EKG shows normal: sinus rhythm Rate: normal (92 bpm) - EKG Data When compared to previous EKG there are: previous EKG unavailable Interpretation: other (PVC. No ischemic changes seen) - Radiology Data Radiology results: report reviewed (Chest x-ray), image reviewed (Chest x-ray) interpreted by me: Chest x-ray-no definite focal infiltrates, no pneumothorax. [facility] [address] [place] [address] XRay Report Signed Patient: MINISTERIO ZAVALA MR#: [id number] : 1955 Acct:[id number] Age/Sex: 65 / M ADM Date: 08/27/21 Loc: ED Attending Dr: Ordering Physician: NICK STRATTON Date of Service: 08/27/21 Procedure(s): XR chest routine 2V Accession Number(s): [id number] cc: NICK STRATTON Fluoro Time In Minutes: CHEST 2 VIEWS INDICATION: shortness of breath. COMPARISON: 08/10/2021 FINDINGS: Support devices: None. Heart: Within normal limits. Lungs/pleura: No acute air space or interstitial disease. No pneumothorax. Additional findings: None. IMPRESSION: Unremarkable chest films. No change since 09/10/2021. Signer Name: Glen Gonzalez Jr, MD Signed: 08/27/2021 10:49 AM Workstation Name: [id number] Transcribed By: TTR Dictated By: GLEN GONZALEZ JR, MD Electronically Authenticated By: GLEN GONZALEZ JR, MD Signed Date/Time: 08/27/21 104 DD/ 1048 TD/TT: Print Cancel - Differential Diagnosis Hypoglycemia Critical care attestation.: If time is entered above; I have spent that time in minutes in the direct care of this critically ill patient, excluding procedure time. ED Disposition Clinical Impression: Hypoglycemia, Dementia Disposition: 01 HOME / SELF CARE / HOMELESS Is pt being admited?: No Does the pt Need Aspirin: No Condition: Stable Additional Instructions: Return to the emergency department should you develop worsening symptoms, inability to tolerate food or liquids, high fever or any other concerns Referrals: PRIMARY CAREMD [Primary Care Provider] - 3-5 Days Time of Disposition: 12:27 (DC to family)
--- NOTE | 2021-08-28 08:41 | Electrocardiograph Report ---
[facility] Test Date: 2021-08-27 Test Time: 10:39:38 Pat Name: MINISTERIO ZAVALA Department: Room: Gender: M Night Shift Manager: JAOCB PHILLIPB: 1955 Requested By: NICK STRATTON Order Number: [id number] Reading MD: Jelani Luz Measurements Intervals [place] Rate: 92 P: 50 ND: 154 QRS: 1 QRSD: 86 T: 9 QT: 365 QTc: 451 Interpretive Statements Sinus rhythm Ventricular premature complex Probable left atrial enlargement Compared to ECG 08/10/2021 11:08:59 Ventricular premature complex(es) now present Myocardial infarct finding no longer present Electronically Signed On 08-28-2021 8:40:44 EST by Jelani Luz
== END 2021-08-27 13:15 | disposition home or self-care (01) ==
LOC: ED 09:50
DX: E16.2 Hypoglycemia, unspecified (principal); F03.90 Unspecified dementia, unspecified severity, without behavioral disturbance, psychotic disturbance, mood disturbance, and anxiety; I10 Essential (primary) hypertension; E11.9 Type 2 diabetes mellitus without complications; Z87.891 Personal history of nicotine dependence
CPT/HCPCS: 36415; 71046; 80053; 82962; 84484; 85025; 93005; 99284

== ENCOUNTER 2021-11-01 18:56 | Observation (INO) | payer MEDICARE ==
--- NOTE | 2021-11-01 19:37 | Emergency Department Report ---
ED General Adult HPI - General Chief complaint: Altered Mental Status Stated complaint: AGGITATION Time Seen by Provider: 11/01/21 19:24 Source: patient, family, EMS (Verbal report received from emergency medical services.), RN notes reviewed, old records reviewed Mode of arrival: Stretcher Limitations: Altered Mental Status - History of Present Illness Initial comments: The patient was evaluated in the emergency department for symptoms described in the history of present illness. He/she was evaluated in the context of the global COVID-19 pandemic, which necessitated consideration that the patient might be at risk for infection with the virus that causes COVID-19. Institutional protocols and algorithms that pertain to the evaluation of patient s at risk for COVID-19 are in a state of rapid change based on information released by regulatory bodies including the CDC and federal and state organizations. These policies and algorithms were followed during the patient's care in the emergency department. Please note that these policies, procedures and recommendations changed on a rapid basis. History obtained from patient's daughter, Ms. Gomes; [phone], as well as by speaking to his , Ms. Erna Gomes; [phone] The patient is a 65-year-old gentleman with a history of dementia, diabetes, hypertension and high cholesterol. He is brought to the hospital today by emergency medical services. As per his daughter, and his , the patient called 911 because he wants his children out of his house. His , Ms. Erna Gomes states that she is the patient's power of pairer inspector, and medical decision-maker, but she reports that they are . His daughter states that the patient called 911 because he wants the children out of the house. As per his and daughter, patient has had a gradual decline in functional status, becoming very paranoid about multiple physical and perceived medical maladies, including tinnitus, and nonspecific multiple pains. As per his family, no fever, nausea, vomiting or diarrhea, and he is COVID-19 vaccinated. The patient himself has no recollection of the event. In the emergency room, he is confused, and complains of "pinching" chest pressure. Family denies travel, surgery, immobilization, leg pain/leg swelling, DVT and pulmonary embolism risk factors. As per his , Ms. Erna Mireya, he is not maintained on any psychiatric medications. He is specifically discontinued on Seroquel/quetiapine. Discussion has been had in the past about placement in jail or personal- detention, but this has not happened as of yet. Patient's family states that the patient has home health services twice a week. EMS reports normal Accu-Chek in the field. EMS further reports that the patient was ambulatory with an unsteady gait in the field, and required a two-person assist -: Gradual, Sudden Location: chest Severity scale (0 -10): 0 Quality: aching Consistency: intermittent Improves with: none Worsens with: none - Related Data Home Medications Medication Instructions Recorded Confirmed Last Taken AtorvaSTATin 40 mg PO HS 08/10/21 11/02/21 Unknown Lisinopril 20 mg PO DAILY 08/10/21 11/02/21 Unknown QUEtiapine 25 mg PO HS 08/10/21 08/10/21 Unknown amLODIPine 10 mg PO DAILY 08/10/21 11/02/21 Unknown metFORMIN 500 mg PO BID 08/10/21 11/02/21 Unknown Previous Rx's Medication Instructions Recorded Last Taken Type Aspirin EC [Halfprin EC] 81 mg PO QDAY #30 tablet. 11/03/21 Unknown Rx Allergies Allergy/AdvReac Type Severity Reaction Status Date / Time No Known Allergies Allergy Verified 11/01/21 22:11 ED Review of Systems ROS: Stated complaint: AGGITATION Other details as noted in HPI Constitutional: malaise, weakness Eyes: denies: eye discharge ENT: denies: epistaxis Respiratory: denies: cough Cardiovascular: chest pain Gastrointestinal: denies: abdominal pain, vomiting Genitourinary: denies: dysuria, frequency Neurological: weakness, confusion Psychiatric: anxiety. denies: homicidal thoughts, suicidal thoughts ED Past Medical Hx - Past Medical History Hx Hypertension: Yes Hx Diabetes: Yes Hx Dementia: Yes Additional medical history: dementia, vertigo - Surgical History Additional Surgical History: Large ex lap wound present but patient is unaware of what surgery was performed and for what reason - Social History Smoking Status: Former Smoker (None x10-15 years) Substance Use Type: None (Denies illicit drug use) - Medications Home Medications: Home Medications Medication Instructions Recorded Confirmed Last Taken Type AtorvaSTATin 40 mg PO HS 08/10/21 11/02/21 Unknown History Lisinopril 20 mg PO DAILY 08/10/21 11/02/21 Unknown History QUEtiapine 25 mg PO HS 08/10/21 08/10/21 Unknown History amLODIPine 10 mg PO DAILY 08/10/21 11/02/21 Unknown History metFORMIN 500 mg PO BID 08/10/21 11/02/21 Unknown History Aspirin EC [Halfprin EC] 81 mg PO QDAY #30 tablet. 11/03/21 Unknown Rx ED Physical Exam - General Limitations: Altered Mental Status, Other (Patient is demented. Patient is poor historian.) General appearance: anxious - Head Head exam: Present: atraumatic, normocephalic - Eye Eye exam: Present: normal appearance, EOMI. Absent: nystagmus - ENT ENT exam: Present: normal exam, normal orophraynx, mucous membranes moist, normal external ear exam - Neck Neck exam: Present: normal inspection, full ROM. Absent: tenderness, meningismus - Respiratory Respiratory exam: Present: normal lung sounds bilaterally. Absent: respiratory distress, wheezes, rales, rhonchi, stridor, decreased breath sounds - Cardiovascular Cardiovascular Exam: Present: regular rate, normal rhythm, normal heart sounds. Absent: bradycardia, tachycardia, irregular rhythm, systolic murmur, diastolic murmur, rubs, gallop - GI/Abdominal GI/Abdominal exam: Present: soft. Absent: distended, tenderness, guarding, rebound, rigid, pulsatile mass - Rectal Rectal exam: Present: deferred - Extremities Exam Extremities exam: Present: normal inspection, full ROM, pedal edema (1+ edema in the bilateral lower extremities), other (2+ pulses noted in the bilateral upper and lower extremities. There is no palpable cord. negative Homans sign. M uscular compartments are soft. The pelvis is stable.). Absent: calf tenderness - Back Exam Back exam: Present: normal inspection. Absent: tenderness, CVA tenderness (R), CVA tenderness (L), paraspinal tenderness, vertebral tenderness - Neurological Exam Neurological exam: Present: altered, other (No facial droop. Tongue midline. Extraocular movements intact bilaterally. Facial sensation intact to light touch in V1, V2, V3 distribution bilaterally. 5 and a 5 strength in 4 extremities. Sensation intact to light touch in 4 extremities.) - Psychiatric Psychiatric exam: Present: anxious. Absent: homicidal ideation, suicidal ideation - Skin Skin exam: Present: warm, dry, intact, normal color. Absent: rash ED Course Vital Signs 11/01/21 11/01/21 11/01/21 19:11 21:59 22:01 Temperature 98.4 F Pulse Rate 95 H 106 H 107 H Respiratory 19 22 20 Rate Blood Pressure Blood Pressure 181/103 [Left] O2 Sat by Pulse Oximetry 11/01/21 11/01/21 11/01/21 22:15 22:20 22:31 Temperature 98.2 F Pulse Rate 121 H 104 H 88 Respiratory 15 18 10 L Rate Blood Pressure 153/98 Blood Pressure 150/107 [Left] O2 Sat by Pulse 100 95 Oximetry 11/01/21 11/01/21 11/01/21 22:45 23:01 23:15 Temperature Pulse Rate 85 90 85 Respiratory 16 19 14 Rate Blood Pressure 154/89 151/90 154/85 Blood Pressure [Left] O2 Sat by Pulse 95 96 96 Oximetry 11/01/21 11/01/21 11/01/21 23:17 23:31 23:45 Temperature Pulse Rate 93 H 87 87 Respiratory 9 L 15 18 Rate Blood Pressure 154/85 157/87 141/80 Blood Pressure [Left] O2 Sat by Pulse 96 97 97 Oximetry 11/02/21 11/02/21 11/02/21 00:01 00:15 00:31 Temperature Pulse Rate 89 87 92 H Respiratory 21 17 21 Rate Blood Pressure 140/75 138/81 130/85 Blood Pressure [Left] O2 Sat by Pulse 96 97 95 Oximetry 11/02/21 11/02/21 11/02/21 00:45 01:01 01:15 Temperature Pulse Rate 88 86 89 Respiratory 20 17 19 Rate Blood Pressure 130/77 142/82 143/85 Blood Pressure [Left] O2 Sat by Pulse 100 Oximetry 11/02/21 01:31 Temperature Pulse Rate 87 Respiratory 13 Rate Blood Pressure 148/86 Blood Pressure [Left] O2 Sat by Pulse Oximetry - Reevaluation(s) Reevaluation #1: 11/01/21 19:46 Differential diagnosis, including but not limited to: Pneumonia, urinary tract infection, orthostasis, vagal event, structural cardiac disease, dementia, electrolyte derangement, thyroid derangement Assessment and plan: 65-year-old gentleman, who was afebrile and hypertensive, confused, with complaints of behavioral issues, near syncope, chest pain. I suspect that this is likely secondary to worsening dementia. I discussed this with the patient's daughter and the patient's . Family member state that this patient is up-to-date with COVID-19 vaccinations. He is not currently tachycardic, tachypneic or hypoxic, he does not have DVT or pulmonary embolism risk factors, and he is low risk by Wells criteria for pulmonary embolism. He also had a CT scan of his chest in 2020 which was n egative for pulmonary embolism. As per discussion with his , Ms. Erna Gomes, currently, does not have a signed DNR/DNI, although she indicates that she believes the patient's wishes would be to be DNR/DNI if terminally ill. However, at the moment, the patient is full code. Patient is at moderate risk for major adverse cardiac event as per heart score. No recent cardiac risk ratification performed. Obtain appropriate laboratory studies, EKG, urinalysis and chest x-ray. Place patient on adult health clinical nurse specialist. Obtain mental health consultation and evaluation. Admit the patient to the medical service for cardiac restratification. I discussed this with the patient's and with his daughter. They articulated understanding 11/01/21 21:05 Care transferred to oncoming ER provider to contact hospital physician to arrange admission Reevaluation #2: 11/01/21 21:25 Dr Luiz Patel to admit to [facility] ED Medical Decision Making - Lab Data Result diagrams: 11/02/21 05:50 11/02/21 05:50 Vital Signs 11/01/21 19:11 Temperature 98.4 F Pulse Rate 95 H Respiratory 19 Rate Blood Pressure 181/103 [Left] - EKG Data -: EKG Interpreted by Wi EKG shows normal: sinus rhythm Rate: normal - EKG Data Interpretation: unchanged when compared t 11/01/21 20:37 The EKG today is interpreted at 20: 30 The EKG today is unchanged from prior EKG from August 2021 Sinus rhythm, rate 79 bpm. Left axis deviation. Left anterior fascicular block. Intervals within normal limits. Not a STEMI - Radiology Data Radiology results: report reviewed, image reviewed X-ray of the chest is negative for acute findings. CT head/brain wo con INDICATION / CLINICAL INFORMATION: 65 years Male; Altered Mental Status. TECHNIQUE: Routine CT head without contrast. All CT scans at this location are performed using CT dose reduction for ALARA by means of automated exposure control. COMPARISON: The study is compared to previous CT of 08/10/2021. FINDINGS: BRAIN / INTRACRANIAL CONTENTS: The motion degrades the image quality. There is prominence of the CSF attenuation along the cerebral convexities most consistent with cerebral atrophy. The findings appear to correlate with the previous CT. There is no clear evidence of acute intracranial hemorrhage or significant mass effect. The brain parenchyma appears to demonstrate appropriate attenuation for age. ORBITS: No significant abnormality of visualized orbits. SINUSES / MASTOIDS: No significant abnormality in the visualized paranasal sinuses or mastoid air cells. CRANIOCERVICAL JUNCTION: No significant abnormality. ADDITIONAL FINDINGS: None. IMPRESSION: 1. There is cerebral atrophy as detailed above. There is no clear CT evidence of acute intracranial process. Signer Name: Gonsalo Mcmahon MD Signed: 11/01/2021 7:33 PM Workstation Name: [id number] CHEST 1 VIEW 11/01/2021 6:45 PM INDICATION / CLINICAL INFORMATION: Altered Mental Status. COMPARISON: 2 views of the chest from 08/27/2021. FINDINGS: SUPPORT DEVICES: None. HEART / MEDIASTINUM: No significant abnormality. LUNGS / PLEURA: No significant pulmonary abnormality. No significant pleural effusion. No pneumothorax. ADDITIONAL FINDINGS: No significant additional findings. IMPRESSION: 1. No acute abnormality of the chest. Signer Name: Wali Sandhu MD Signed: 11/01/2021 6:48 PM Workstation Name: [id number] Critical care attestation.: If time is entered above; I have spent that time in minutes in the direct care of this critically ill patient, excluding procedure time. ED Disposition Clinical Impression: Chest pain, Near syncope, Dementia, Behavior concern Disposition: 09 ADMITTED INPATIENT Is pt being admited?: Yes Condition: Good Heart Score - HEART Score History: Slightly suspicious EKG: Non-specific Age: > 65 Risk factors: > 3 risk factors or hx of atherosclerotic disease Troponin: < normal limit HEART Score: 5 - EKG Read Time Time EKG Completed: 20:30 EKG Read Time: 20:31 - Critical Actions Critical Actions: 4-6 pts:12-16.6% risk of adverse cardiac event. Should be admitted
--- NOTE | 2021-11-01 19:52 | XRay Report ---
CHEST 1 VIEW 11/01/2021 6:45 PM INDICATION / CLINICAL INFORMATION: Altered Mental Status. COMPARISON: 2 views of the chest from 08/27/2021. FINDINGS: SUPPORT DEVICES: None. HEART / MEDIASTINUM: No significant abnormality. LUNGS / PLEURA: No significant pulmonary abnormality. No significant pleural effusion. No pneumothora x. ADDITIONAL FINDINGS: No significant additional findings. IMPRESSION: 1. No acute abnormality of the chest. Signer Name: Wali Sandhu MD Signed: 11/01/2021 7:48 PM Workstation Name: [id number]
[2021-11-01 20:14] LABS: Basophils # (Auto) 0.1 K/mm3 (0.0-0.1); Basophils % (Auto) 1.2 % (0.0-1.8); Eosinophils # (Auto) 0.2 K/mm3 (0.0-0.4); Eosinophils % (Auto) 2.5 % (0.0-4.3); Hematocrit 43.5 % (35.5-45.6); Lymphocytes # (Auto) 1.6 K/mm3 (1.2-5.4); Lymphocytes % (Auto) 23.7 % (13.4-35.0); Mean Corpuscular HGB Conc 32 % (32-34); Mean Corpuscular Volume 86 fl (84-94); Monocytes # (Auto) 0.7 K/mm3 (0.0-0.8); Monocytes % (Auto) 11.1 % (0.0-7.3); Platelet Count 281 K/mm3 (140-440); Red Blood Count 5.07 M/mm3 (3.65-5.03)
[2021-11-01 20:30] LABS: Partial Thromboplastin Time 27.9 Sec. (24.2-36.6)
--- NOTE | 2021-11-01 20:37 | Cat Scan Report ---
CT head/brain wo con INDICATION / CLINICAL INFORMATION: 65 years Male; Altered Mental Status. TECHNIQUE: Routine CT head without contrast. All CT scans at this location are performed using CT dos e reduction for ALARA by means of automated exposure control. COMPARISON: The study is compared to previous CT of 08/10/2021. FINDINGS: BRAIN / INTRACRANIAL CONTENTS: The motion degrades the image quality. There is prominence of the CSF attenuation along the cerebral convexities most consistent with cerebral atrophy. The findings appear to correlate with the previous CT. There is no clear evidence of acute intracranial hemorrhage or si gnificant mass effect. The brain parenchyma appears to demonstrate appropriate attenuation for age. ORBITS: No significant abnormality of visualized orbits. SINUSES / MASTOIDS: No significant abnormality in the visualized paranasal sinuses or mastoid air usha ls. CRANIOCERVICAL JUNCTION: No significant abnormality. ADDITIONAL FINDINGS: None. IMPRESSION: 1. There is cerebral atrophy as detailed above. There is no clear CT evidence of acute intracranial p rocess. Signer Name: Gonsalo Mcmahon MD Signed: 11/01/2021 8:33 PM Workstation Name: [id number]
[2021-11-01 20:42] LABS: Alanine Aminotransferase 23 units/L (7-56); Albumin 4.3 g/dL (3.9-5); BUN/Creatinine Ratio 12; Blood Urea Nitrogen 11 mg/dL (9-20); Calcium 9.6 mg/dL (8.4-10.2); Hemolysis Index 3
[2021-11-01] MEDS ORDERED: NITROGLYCERIN 0.4 MG TAB SUBL SL PRN ×2 (20:50→22:13)
[2021-11-01] MEDS ORDERED: FAMOTIDINE 20 MG TAB PO ONE (20:50)
[2021-11-01] MEDS ORDERED: ASPIRIN 325 MG TAB PO ONE (20:50)
[2021-11-01 20:59] LABS: Bilirubin,Urine NEG (Negative); Blood,Urine NEG (Negative); Color,Urine Colorless (Yellow); Protein,Urine <15 mg/dL mg/dL (Negative); Urobilinogen,Urine < 2.0 mg/dL (<2.0)
[2021-11-01 21:07] LABS: Amphetamine Screen,Urine Negative; Benzodiazepines Screen,Urine Negative; Cocaine Screen,Urine Negative; Methadone Screen,Urine Negative; Opiate Screen,Urine Negative
[2021-11-01 21:49] LABS: Cannabinoid Screen,Urine Positive
[2021-11-01] MEDS ORDERED: LORazepam 2 MG/ML VIAL IV ONE (22:08)
[2021-11-01] MEDS ORDERED: LORazepam 2 MG/ML VIAL ONE (22:09)
[2021-11-01] MEDS ORDERED: LORazepam 2 MG/ML VIAL IM ONE (22:12)
[2021-11-01] MEDS ORDERED: ACETAMINOPHEN 325 MG TAB PO PRN ×2 (22:13)
[2021-11-01] MEDS ORDERED: MAGNESIUM HYDROXIDE (MOM) ORAL LIQD UDC PO PRN (22:13)
[2021-11-01] MEDS ORDERED: ONDANSETRON 4 MG/2 ML INJ IV PRN (22:13)
[2021-11-01] MEDS ORDERED: traMADol 50 MG TAB PO PRN (22:13)
[2021-11-01] MEDS ORDERED: MORPHINE 2 MG/1 ML INJ IV PRN (22:13)
[2021-11-01] MEDS ORDERED: MORPHINE 4 MG/1 ML INJ IV PRN ×2 (22:13)
[2021-11-01] MEDS ORDERED: DEXTROSE 50% IN WATER (25GM) 50 ML SYRINGE IV PRN (22:13)
--- NOTE | 2021-11-01 22:29 | History and Physical Report ---
History of Present Illness Date of examination: 11/01/21 Date of admission: 11/01/2021 Chief complaint: Chest Pain Confusion History of present illness: 65-year-old male with known history of diabetes mellitus, dyslipidemia,hypertension, dementia brought into the emergency room today by EMS because of declining cognitive status and paranoia. Patient was said to have called 911 requesting days to bridge mostly of his house. Patient appears confused and unable to give any good history. Most of the history was given by the ER staff. Per his family patient has had no fever or chills, no nausea or vomiting, no diarrhea and no abdominal pain. Patient is fully vaccinated against COVID-19. Upon arrival in the emergency room, patient was confused and was complaining of chest pressure and near syncope. has the power of state attorney and she is also medical decision-maker. There had been discussion in the past about placement in a custodial or personal prison. Patient has home health care twice a week. Work-up in the emergency room today, chest x-ray shows no acute abnormality. CT scan of the head shows no acute abnormality. Labs were also unremarkable. Patient has been admitted for chest pain and changes in mental status. Past History Past Medical History: diabetes, hypertension, hyperlipidemia, other (Dementia, vertigo) Past Surgical History: Other (Exploratory laparotomy) Social history: smoking (Former smoker) Family history: no significant family history Medications and Allergies Allergies Allergy/AdvReac Type Severity Reaction Status Date / Time No Known Allergies Allergy Verified 11/01/21 22:11 Home Medications Medication Instructions Recorded Confirmed Last Taken Type AtorvaSTATin 40 mg PO HS 08/10/21 08/10/21 Unknown History Lisinopril 20 mg PO DAILY 08/10/21 08/10/21 Unknown History QUEtiapine 25 mg PO HS 08/10/21 08/10/21 Unknown History amLODIPine 10 mg PO DAILY 08/10/21 08/10/21 Unknown History metFORMIN 500 mg PO BID 08/10/21 08/10/21 Unknown History Active Meds: Active Medications Acetaminophen (Acetaminophen 325 Mg Tab) 650 mg PO Q4H PRN PRN Reason: Pain MILD(1-3)/Fever >100.5/HERRERA Acetaminophen (Acetaminophen 325 Mg Tab) 650 mg PO Q6H PRN PRN Reason: Pain, Mild (1-3) Aspirin (Aspirin Ec 325 Mg Tab) 325 mg PO QDAY [place] Dextrose (Dextrose 50% In Water (25gm) 50 Ml Syringe) 50 ml IV Q30MIN PRN; Protocol PRN Reason: Hypoglycemia Dextrose (Dextrose 50% In Water (25gm) 50 Ml Syringe) 50 ml IV Q30MIN PRN; Protocol PRN Reason: Hypoglycemia Insulin Human Lispro (Insulin Lispro 100 Unit/Ml) 0 unit SUB-Q ACHS TIANA; Protocol Magnesium Hydroxide (Magnesium Hydroxide (Mom) Oral Liqd Udc) 30 ml PO Q4H PRN PRN Reason: Constipation Morphine Sulfate (Morphine 2 Mg/1 Ml Inj) 2 mg IV Q4H PRN PRN Reason: Pain, Moderate (4-6) Morphine Sulfate (Morphine 4 Mg/1 Ml Inj) 4 mg IV Q4H PRN PRN Reason: Pain , Severe (7-10) Morphine Sulfate (Morphine 4 Mg/1 Ml Inj) 2 mg IV Q5MIN PRN PRN Reason: Chest Pain unrelieved by NTG Nitroglycerin (Nitroglycerin 0.4 Mg Tab Subl) 0.4 mg SL .Q5MIN PRN PRN Reason: Chest Pain Nitroglycerin (Nitroglycerin 0.4 Mg Tab Subl) 0.4 mg SL Q5M PRN PRN Reason: Chest Pain Ondansetron HCl (Ondansetron 4 Mg/2 Ml Inj) 4 mg IV Q8H PRN PRN Reason: Nausea And Vomiting Sodium Chloride (Sodium Chloride 0.9% 10 Ml Flush Syringe) 10 ml IV BID TIANA Sodium Chloride (Sodium Chloride 0.9% 10 Ml Flush Syringe) 10 ml IV PRN PRN PRN Reason: LINE FLUSH Sodium Chloride (Sodium Chloride 0.9% 10 Ml Flush Syringe) 10 ml IV PRN PRN PRN Reason: LINE FLUSH Tramadol HCl (Tramadol 50 Mg Tab) 50 mg PO Q6H PRN PRN Reason: Pain, Moderate (4-6) Review of Systems Constitutional: no fever, no chills Ears, nose, mouth and throat: no nasal congestion, no sore throat Cardiovascular: chest pain, no palpitations Respiratory: no cough, no shortness of breath Genitourinary Male: no dysuria, no hematuria, no flank pain, no nocturia Musculoskeletal: no neck pain, no low back pain Integumentary: no rash, no pruritis Neurological: no headaches, no confusion Psychiatric: confusion, no anxiety, no depression Endocrine: no polyphagia, no polydipsia, no polyuria, no nocturia Exam - Constitutional Vitals: Temp Pulse Resp BP Pulse Ox 98.2 F 104 H 18 150/107 100 11/01/21 22:20 11/01/21 22:20 11/01/21 22:20 11/01/21 22:20 11/01/21 22:20 General appearance: Present: no acute distress, well-nourished - EENT Eyes: Present: PERRL, EOM intact. Absent: scleral icterus ENT: hearing intact, clear oral mucosa, dentition normal - Neck Neck: Present: supple, normal ROM - Respiratory Respiratory effort: normal Respiratory: bilateral: CTA - Cardiovascular Rhythm: regular Heart Sounds: Present: S1 & S2. Absent: gallop, systolic murmur, diastolic murmur, rub, click - Extremities Extremities: no ischemia, pulses intact, pulses symmetrical, No edema, normal temperature, normal color, Full ROM Peripheral Pulses: within normal limits - Abdominal General gastrointestinal: Present: soft, non-tender, non-distended, normal bowel sounds. Absent: mass - Integumentary Integumentary: Present: clear, warm, dry. Absent: rash - Musculoskeletal Musculoskeletal: strength equal bilaterally - Psychiatric Psychiatric: cooperative, other (Confused) - Neurologic Neurologic: CNII-XII intact, no focal deficits, moves all extremities HEART Score - HEART Score History: Slightly suspicious EKG: Non-specific Age: > 65 Risk factors: > 3 risk factors or hx of atherosclerotic disease Troponin: Troponin T < 0.010 ng/mL (0.00-0.029) 11/01/21 20:00 Troponin: < normal limit HEART Score: 5 - Critical Actions Critical Actions: 4-6 pts:12-16.6% risk of adverse cardiac event. Should be admitted Results - Labs CBC & Chem 7: 11/01/21 23:08 11/01/21 23:08 Labs: Abnormal lab results 11/01/21 11/01/21 11/01/21 Range/Units 20:00 20:00 20:00 RBC 5.07 H (3.65-5.03) M/mm3 [place] % (Auto) 11.1 H (0.0-7.3) % Glucose 204 H (75-100) mg/dL Salicylates < 0.3 L (2.8-20.0) mg/dL Acetaminophen (10.0-30.0) ug/mL 11/01/21 Range/Units 20:00 RBC (3.65-5.03) M/mm3 [place] % (Auto) (0.0-7.3) % Glucose (75-100) mg/dL Salicylates (2.8-20.0) mg/dL Acetaminophen 5.0 L (10.0-30.0) ug/mL Assessment and Plan - Patient Problems (1) Chest pain Current Visit: Yes Status: Acute Plan to address problem: We will check serial cardiac enzymes. Patient placed on daily aspirin,Sublingual nitroglycerin and IV morphine as needed for chest pain. (2) Behavior concern Current Visit: Yes Status: Acute Plan to address problem: Possibly related to the underlying dementia. Consult will be placed to mental health for evaluation. We will also consult case management for possible placement. (3) Diabetes mellitus Current Visit: Yes Status: Acute Plan to address problem: Will monitor Accu-Cheks closely. (4) Hypertension Current Visit: Yes Status: Acute Plan to address problem: Resume routine home medications and monitor vital signs closely. (5) DVT prophylaxis Current Visit: Yes Status: Acute Plan to address problem: Patient placed on subcutaneous heparin. (6) Full code status Current Visit: Yes Status: Acute Plan to address problem: Patient is full code.
[2021-11-01 23:51] LABS: Basophils # (Auto) 0.1 K/mm3 (0.0-0.1); Basophils % (Auto) 0.9 % (0.0-1.8); Eosinophils # (Auto) 0.1 K/mm3 (0.0-0.4); Eosinophils % (Auto) 2.2 % (0.0-4.3); Hematocrit 42.3 % (35.5-45.6); Hemoglobin 13.7 gm/dl (11.8-15.2); Lymphocytes # (Auto) 1.8 K/mm3 (1.2-5.4); Lymphocytes % (Auto) 27.9 % (13.4-35.0); Mean Corpuscular HGB Conc 32 % (32-34); Mean Corpuscular Volume 86 fl (84-94); Monocytes # (Auto) 0.6 K/mm3 (0.0-0.8); Monocytes % (Auto) 10.1 % (0.0-7.3); Platelet Count 259 K/mm3 (140-440); Red Blood Count 4.94 M/mm3 (3.65-5.03); Red Cell Distribution Width 14.2 % (13.2-15.2)
[2021-11-02 00:48] LABS: BUN/Creatinine Ratio 11; Blood Urea Nitrogen 10 mg/dL (9-20); Calcium 9.6 mg/dL (8.4-10.2); Hemolysis Index 22
[2021-11-02 07:00] LABS: Basophils % (Auto) 0.7 % (0.0-1.8); Eosinophils # (Auto) 0.2 K/mm3 (0.0-0.4); Eosinophils % (Auto) 3.7 % (0.0-4.3); Hematocrit 39.2 % (35.5-45.6); Hemoglobin 12.7 gm/dl (11.8-15.2); Lymphocytes # (Auto) 1.5 K/mm3 (1.2-5.4); Lymphocytes % (Auto) 29.4 % (13.4-35.0); Mean Corpuscular HGB Conc 33 % (32-34); Mean Corpuscular Volume 86 fl (84-94); Monocytes # (Auto) 0.6 K/mm3 (0.0-0.8); Monocytes % (Auto) 11.9 % (0.0-7.3); Platelet Count 249 K/mm3 (140-440); Red Blood Count 4.58 M/mm3 (3.65-5.03); Red Cell Distribution Width 13.8 % (13.2-15.2)
[2021-11-02 07:26] LABS: BUN/Creatinine Ratio 14; Blood Urea Nitrogen 11 mg/dL (9-20); Calcium 9.7 mg/dL (8.4-10.2); Hemolysis Index 1
[2021-11-02] MEDS: INSULIN LISPRO 100 UNIT/ML SUB-Q SCH ×4 (07:50→22:08)
[2021-11-02] MEDS ORDERED: ASPIRIN EC 325 MG TAB PO SCH (10:00)
--- NOTE | 2021-11-02 12:07 | Consultation ---
History of Present Illness - Reason for Consult Consult date: 11/02/21 Reason for consult: Dementia - Chief Complaint Chief complaint: Chest Pain Confusion - History of Present Psychiatric Illness ED Note: The patient is a 65-year-old gentleman with a history of dementia, diabetes, hypertension and high cholesterol. He is brought to the hospital today by emergency medical services. As per his daughter, and his , the patient called 911 because he wants his children out of his house. His , Ms. Erna Gomes states that she is the patient's power of civil litigation attorney, and medical decision-maker, but she reports that they are . His daughter states that the patient called 911 because he wants the children out of the house. As per his and daughter, patient has had a gradual decline in functional status, becoming very paranoid about multiple physical and perceived medical maladies, including tinnitus, and nonspecific multiple pains. As per his family, no fever, nausea, vomiting or diarrhea, and he is COVID-19 vaccinated.The patient himself has no recollection of the event. In the emergency room, he is confused, and complains of "pinching" chest pressure. Family denies travel, surgery, immobilization, leg pain/leg swelling, DVT and pulmonary embolism risk factors. As per his , Ms. Erna Gomes, he is not maintained on any psychiatric medications. He is specifically discontinued on Seroquel/quetiapine. Discussion has been had in the past about [facility] or personal-group home, but this has not happened as of yet. Patient's family states that the patient has home health services twice a week. Dave Gomes is a 65 year old male with history of dementia. In my interview with the patient he is calm, alert and oriented to self. The patient is forgetful and confused unable to states why he came to the ED. The patient states he is doing well. He denies any current suicidal/homicidal ideation and denies hallucinations. Collateral received from Ex- Mrs. Lakeisha Gomes states that the patient was diagnosed with dementia in July 2020. States that he sees Dr. Metcalf a neurologist who has tried placing the patient on three different antidepressant but failed due side effects and per ex- the neurologist is holding off placing the patient on psychotropic meds for now. PAST PSYCHIATRIC HISTORY: Diagnoses:Dementia Suicide attempts or Self-harm behavior: Denies Prior psychiatric hospitalizations:Denies Substance Abuse history:Denies Outpatient treatment: Unknown PAST MEDICAL HISTORY: unknown Family Psychiatric History: None reported or documented SOCIAL HISTORY Marital Status: Living Arrangements: lives with children Employment Status:Retired Access to guns/weapons: Denies Education:[employer] History of Abuse:Denies Legal History: Denies REVIEW OF SYSTEMS Constitutional: Negative for weight loss ENT: Negative for stridor Respiratory: Negative for cough or hemoptysis All other systems reviewed and are negative MENTAL STATUS EXAMINATION General Appearance and Behavior: Age appropriate, good hygiene, wearing appropriate clothes. calm, cooperative Cooperation: Cooperative Psychomotor Behavior: Psychomotor normal Mood:calm Affect and affective range: congruent with stated mood Thought Process: confused Thought Content: Speech: normal tone and pace Suicidal Ideation: Denies Homicidal Ideation: Denies Hallucinations: Denies Delusions:Denies Impulse Control: Limited Insight and Judgment: Limited insight and fair judgment Memory: Limited Attention: distracted Orientation: a/o x 1 Assessment (1)Hx of Dementia (2) Current Visit: Yes Status: Acute Treatment plan Continue previous prescribed meds Risks, benefits and alternatives of medications discussed with the patient, questions answered and consent obtained from patient. PSYCHOTHERAPY: Supportive psychotherapy provided MEDICAL: Per primary team DELIRIUM PRECAUTIONS: Please re-orient patient frequently, keep lights on during the day, and minimize benzodiazepines and opiates as these medications could worsen patient's confusion. POLICE PATROL OFFICER: Per medical team DISPOSITION: Do not Recommend acute inpatient psychiatric hospitalization. Will sign off. Thank you for the consult. Please contact with any questions and/or concerns. Case staffed with Dr. Subramanian Medications and Allergies Medications and Allergies Allergies Allergy/AdvReac Type Severity Reaction Status Date / Time No Known Allergies Allergy Verified 11/01/21 22:11 Home Medications Medication Instructions Recorded Confirmed Last Taken Type AtorvaSTATin 40 mg PO HS 08/10/21 08/10/21 Unknown History Lisinopril 20 mg PO DAILY 08/10/21 08/10/21 Unknown History QUEtiapine 25 mg PO HS 08/10/21 08/10/21 Unknown History amLODIPine 10 mg PO DAILY 08/10/21 08/10/21 Unknown History metFORMIN 500 mg PO BID 08/10/21 08/10/21 Unknown History Active Meds: Active Medications Acetaminophen (Acetaminophen 325 Mg Tab) 650 mg PO Q4H PRN PRN Reason: Pain MILD(1-3)/Fever >100.5/HERRERA Acetaminophen (Acetaminophen 325 Mg Tab) 650 mg PO Q6H PRN PRN Reason: Pain, Mild (1-3) Aspirin (Aspirin Ec 325 Mg Tab) 325 mg PO QDAY [facility] Last Admin: 11/02/21 11:00 Dose: 325 mg Dextrose (Dextrose 50% In Water (25gm) 50 Ml Syringe) 50 ml IV Q30MIN PRN; Protocol PRN Reason: Hypoglycemia Dextrose (Dextrose 50% In Water (25gm) 50 Ml Syringe) 50 ml IV Q30MIN PRN; Protocol PRN Reason: Hypoglycemia Insulin Human Lispro (Insulin Lispro 100 Unit/Ml) 0 unit SUB-Q ACHS [facility]; Protocol Last Admin: 11/02/21 11:52 Dose: 2 unit Magnesium Hydroxide (Magnesium Hydroxide (Mom) Oral Liqd Udc) 30 ml PO Q4H PRN PRN Reason: Constipation Morphine Sulfate (Morphine 2 Mg/1 Ml Inj) 2 mg IV Q4H PRN PRN Reason: Pain, Moderate (4-6) Morphine Sulfate (Morphine 4 Mg/1 Ml Inj) 4 mg IV Q4H PRN PRN Reason: Pain , Severe (7-10) Morphine Sulfate (Morphine 4 Mg/1 Ml Inj) 2 mg IV Q5MIN PRN PRN Reason: Chest Pain unrelieved by NTG Nitroglycerin (Nitroglycerin 0.4 Mg Tab Subl) 0.4 mg SL .Q5MIN PRN PRN Reason: Chest Pain Nitroglycerin (Nitroglycerin 0.4 Mg Tab Subl) 0.4 mg SL Q5M PRN PRN Reason: Chest Pain Ondansetron HCl (Ondansetron 4 Mg/2 Ml Inj) 4 mg IV Q8H PRN PRN Reason: Nausea And Vomiting Sodium Chloride (Sodium Chloride 0.9% 10 Ml Flush Syringe) 10 ml IV BID [facility] Last Admin: 11/02/21 11:00 Dose: 10 ml Sodium Chloride (Sodium Chloride 0.9% 10 Ml Flush Syringe) 10 ml IV PRN PRN PRN Reason: LINE FLUSH Sodium Chloride (Sodium Chloride 0.9% 10 Ml Flush Syringe) 10 ml IV PRN PRN PRN Reason: LINE FLUSH Tramadol HCl (Tramadol 50 Mg Tab) 50 mg PO Q6H PRN PRN Reason: Pain, Moderate (4-6) Mental Status Exam - Vital signs Last Vital Signs Temp 98.8 F 11/02/21 08:10 Pulse 72 11/02/21 08:10 Resp 18 11/02/21 08:10 BP 142/73 11/02/21 08:10 Pulse Ox 98 11/02/21 09:08 Results Result Diagrams: 11/02/21 05:50 11/02/21 05:50 Abnormal lab results 11/01/21 11/01/21 11/01/21 Range/Units 20:00 20:00 20:00 RBC 5.07 H (3.65-5.03) M/mm3 [place] % (Auto) 11.1 H (0.0-7.3) % Glucose 204 H (75-100) mg/dL POC Glucose (70-105) mg/dL Salicylates < 0.3 L (2.8-20.0) mg/dL Acetaminophen (10.0-30.0) ug/mL 11/01/21 11/01/21 11/01/21 Range/Units 20:00 23:08 23:08 RBC (3.65-5.03) M/mm3 [place] % (Auto) 10.1 H (0.0-7.3) % Glucose 246 H (75-100) mg/dL POC Glucose (70-105) mg/dL Salicylates (2.8-20.0) mg/dL Acetaminophen 5.0 L (10.0-30.0) ug/mL 11/02/21 11/02/21 11/02/21 Range/Units 05:50 05:50 08:16 RBC (3.65-5.03) M/mm3 [place] % (Auto) 11.9 H (0.0-7.3) % Glucose 267 H (75-100) mg/dL POC Glucose 199 H (70-105) mg/dL Salicylates (2.8-20.0) mg/dL Acetaminophen (10.0-30.0) ug/mL 11/02/21 Range/Units 11:16 RBC (3.65-5.03) M/mm3 [place] % (Auto) (0.0-7.3) % Glucose (75-100) mg/dL POC Glucose 155 H (70-105) mg/dL Salicylates (2.8-20.0) mg/dL Acetaminophen (10.0-30.0) ug/mL All other labs normal.
[2021-11-02] MEDS ORDERED: DEXTROSE 10% *Hypoglycemia IV PRN (12:40)
--- NOTE | 2021-11-02 14:47 | Progress Note ---
Assessment and Plan 65-year-old male with known history of diabetes mellitus, dyslipidemia,hypertension, dementia brought into the emergency room by EMS because of declining cognitive status and paranoia. Upon arrival in the emergency room, patient was confused and was complaining of chest pressure and near syncope. has the power of ornamenter and she is also medical decision-maker. There had been discussion in the past about placement in a assisted or personal correction. Patient has home health care twice a week. Work-up in the emergency room : chest x-ray shows no acute abnormality. CT scan of the head shows no acute abnormality. Labs were also unremarkable. Patient has been admitted for chest pain and changes in mental status. Assessment and plan: -- Chest pain Current Visit: Yes Status: Acute Plan to address problem: Monitor with serial cardiac enzymes. Patient placed on daily aspirin,Sublingual nitroglycerin and IV morphine as needed for chest pain. -- Behavior concern/acute psychosis Current Visit: Yes Status: Acute Plan to address problem: Possibly related to the underlying dementia. Consult placed to mental health for evaluation. Consulted case management for possible placement. -- Diabetes mellitus Current Visit: Yes Status: Acute Plan to address problem: Will monitor Accu-Cheks closely. -- Hypertension Current Visit: Yes Status: Acute Plan to address problem: Resume routine home medications and monitor vital signs closely. -- DVT prophylaxis Current Visit: Yes Status: Acute Plan to address problem: Patient placed on subcutaneous heparin. -- Full code status Current Visit: Yes Status: Acute Plan to address problem: Patient is full code. Daily clinical course: 11/02: Patient remains agitated and confused. But denies any chest pain right now. Wait for psych and cardiology recommendion, continue to follow clinically. Subjective Date of service: 11/02/21 Interval history: Patient seen and examined. Medical records and medication list reviewed. No acute event overnight noted by the RN. Patient appears to be agitated and confused. Patient is tolerating diet. Discussed plan of care at bedside with patient. Objective - Constitutional Vitals: Vital Signs - 12hr 11/02/21 11/02/21 11/02/21 04:18 08:10 09:08 Temperature 98.5 F 98.8 F Pulse Rate 82 72 Respiratory 18 18 Rate Blood Pressure 121/65 142/73 O2 Sat by Pulse 97 97 98 Oximetry 11/02/21 12:00 Temperature 98.4 F Pulse Rate 80 Respiratory 18 Rate Blood Pressure 171/95 O2 Sat by Pulse 98 Oximetry - Labs CBC & Chem 7: 11/02/21 05:50 11/02/21 05:50 Labs: Abnormal lab results 11/01/21 11/01/21 11/01/21 Range/Units 20:00 20:00 20:00 RBC 5.07 H (3.65-5.03) M/mm3 [place] % (Auto) 11.1 H (0.0-7.3) % Glucose 204 H (75-100) mg/dL POC Glucose (70-105) mg/dL Salicylates < 0.3 L (2.8-20.0) mg/dL Acetaminophen (10.0-30.0) ug/mL 11/01/21 11/01/21 11/01/21 Range/Units 20:00 23:08 23:08 RBC (3.65-5.03) M/mm3 [place] % (Auto) 10.1 H (0.0-7.3) % Glucose 246 H (75-100) mg/dL POC Glucose (70-105) mg/dL Salicylates (2.8-20.0) mg/dL Acetaminophen 5.0 L (10.0-30.0) ug/mL 11/02/21 11/02/21 11/02/21 Range/Units 05:50 05:50 08:16 RBC (3.65-5.03) M/mm3 [place] % (Auto) 11.9 H (0.0-7.3) % Glucose 267 H (75-100) mg/dL POC Glucose 199 H (70-105) mg/dL Salicylates (2.8-20.0) mg/dL Acetaminophen (10.0-30.0) ug/mL 11/02/21 Range/Units 11:16 RBC (3.65-5.03) M/mm3 [place] % (Auto) (0.0-7.3) % Glucose (75-100) mg/dL POC Glucose 155 H (70-105) mg/dL Salicylates (2.8-20.0) mg/dL Acetaminophen (10.0-30.0) ug/mL HEART Score - HEART Score EKG: Non-specific Age: > 65 Risk factors: > 3 risk factors or hx of atherosclerotic disease Troponin: Troponin T < 0.010 ng/mL (0.00-0.029) 11/02/21 05:50 Troponin: < normal limit - Critical Actions Critical Actions: 4-6 pts:12-16.6% risk of adverse cardiac event. Should be admitted
[2021-11-03] MEDS: INSULIN LISPRO 100 UNIT/ML SUB-Q SCH (08:16)
--- NOTE | 2021-11-03 09:11 | Discharge Summary ---
Providers - Providers Date of Admission: 11/01/21 22:13 Date of discharge: 11/03/21 Attending physician: CLARI DUBON 11/01/21 Consult to Cardiac Rehabilitation [CONS] Routine Reason For Exam: Phase I 11/01/21 22:13 Consult to Cardiology [CONS] Routine Consulting Provider: EZRA SHORE Reason For Exam: chest pain Consult to Dietitian/Nutrition [CONS] Routine Physician Instructions: Reason For Exam: Reason for Consult: Diet education 11/02/21 05:59 Consult to Case Management [CONS] Routine Services Needed at Discharge: Other Notified:: case management Comment:: For correction placement 11/02/21 06:00 Consult to Mental Health [CONS] Routine Reason For Exam: Dementia with behavioral disorder Primary care physician: PRODUCTION WELDING SUPERVISOR Hospitalization Condition: Good Pertinent studies: Chest x-ray, head CT, 2D echo Hospital course: 65-year-old male with known history of diabetes mellitus, dyslipidemia,hypertension, dementia brought into the emergency room by EMS because of declining cognitive status and paranoia. Upon arrival in the emergency room, patient was confused and was complaining of chest pressure and near syncope. has the power of finance attorney and she is also medical decision-maker. There had been discussion in the past about placement in a correction or personal intermediate. Patient has home health care twice a week. Work-up in the emergency room : chest x-ray shows no acute abnormality. CT scan of the head shows no acute abnormality. Labs were also unremarkable. Patient has been admitted for chest pain and changes in mental status. Patient was monitored with the serial cardiac enzymes which has been negative Psych was consulted and recommended no inpatient psych hospitalization is necessary. Patient was being monitored with supportive care, cardiac evaluation is pending. Patient was more alert and oriented by next day. But patient refused to stay in the hospital and wanted to leave AGAINST MEDICAL ADVICE and was refusing all treatment in the hospital. Discussed with patient and and inform her that the patient wanted to leave against medical advised. Patient who is the POA agreed with patient and patient was discharged with his . Advised to follow-up with Dr. Loza in 1 week. His 2D echo showed preserved EF. Disposition: LEFT AGAINST MEDICAL ADVICE Final Discharge Diagnosis (Prints w/discharge instructions): -- Chest pain, atypical, likely musculoskeletal. -- Behavior concern/acute psychosis. --Dementia. -- Diabetes mellitus. -- Hypertension Time spent for discharge: 34 minutes Core Measure Documentation - Palliative Care Palliative Care/ Comfort Measures: Not Applicable - Core Measures Any of the following diagnoses?: none Exam - Physical Exam Narrative exam: Vitals noted and stable - Constitutional Vitals: Temp Pulse Resp BP Pulse Ox 98.1 F 93 H 19 145/80 98 11/03/21 00:00 11/03/21 02:00 11/03/21 00:00 11/03/21 00:00 11/03/21 02:00 Plan Activity: advance as tolerated Weight Bearing Status: Non-Weight Bearing Diet: low fat, low salt Follow up with: PRIMARY CAREMD [Primary Care Provider] - 7 Days ANTIONE LOZA MD [Staff Physician] - 7 Days Forms: AMA Form Prescriptions: Aspirin EC [Halfprin EC] 81 mg PO QDAY #30 tablet.
[2021-11-03 09:13] VITALS: BP 172/99
--- NOTE | 2021-11-03 20:09 | Consultation ---
DATE OF CONSULTATION: 11/02/2021 HISTORY OF PRESENT ILLNESS: The patient is a 65-year-old -[place] gentleman with multiple medical problems who was brought to the hospital because of declining cognitive status. In the emergency room, he complained of chest pressure and near syncope. At this time, he is confused, comfortable, with no complaints. He denies all cardiovascular symptoms such as chest pain, shortness of breath, palpitations, dizziness, claudication or edema. He describes himself as moderately active and eating fairly well. There has been no insomnia. There is a remote history of smoking, without a history of lung disease. He can tell you that he has dementia. Cardiovascular workup has been initiated. PAST MEDICAL HISTORY: ALLERGIES: None. SOCIAL HISTORY: Smoking, prior smoker. Alcohol, no heavy use described. FAMILY HISTORY: Unremarkable. PREVIOUS OPERATIONS:. Exploratory lap. MEDICATIONS: See the nurse's list. REVIEW OF SYSTEMS: No other complaints or medical problems described. PHYSICAL EXAMINATION: GENERAL: Well-developed, well-nourished, moderately overweight, no acute distress. Alert, cooperative, but confused. EYES, NOSE AND THROAT: Unremarkable. NECK: Reveals mild JVD. There are no bruits. NECK: Supple, no masses. LUNGS: Clear. No labored respirations. HEART: Regular rhythm. Soft S4. No murmurs or rubs. ABDOMEN: Soft, nontender, no masses. EXTREMITIES: No cyanosis, clubbing, edema. Peripheral pulses are intact. NEUROLOGIC: Deferred. SKIN: Clear. LABORATORY DATA: EKG, no acute electrocardiographic changes reported. Chest x-ray, no acute disease evident. IMPRESSION: 1. History of chest pain with many risk factors for coronary artery disease. There is no suggestion of an acute coronary syndrome, so stress test and echo has been initiated for an evaluation. 2. Diabetes. 3. Obesity. 4. Dementia. 5. Hypertension. 6. Hyperlipidemia. 7. Prior smoker. PLAN: Medical therapy for possible underlying coronary artery disease along with therapy for his other risk factors. Workup is in progress. Thank you for this consultation. TID: [id number] RECEIPT: [id number] CHELA/JOAQUÍN
== END 2021-11-03 10:50 | disposition left against medical advice (07) ==
LOC: ED 18:56 → 4A 22:13
PROVIDERS: ADMIT Internal Medicine Geriatric Medicine; ATTEND Internal Medicine
DX: R07.89 Other chest pain (principal); R41.0 Disorientation, unspecified; I10 Essential (primary) hypertension; E11.9 Type 2 diabetes mellitus without complications; E78.5 Hyperlipidemia, unspecified; E66.9 Obesity, unspecified; F03.90 Unspecified dementia, unspecified severity, without behavioral disturbance, psychotic disturbance, mood disturbance, and anxiety; R55 Syncope and collapse; F23 Brief psychotic disorder; Z87.891 Personal history of nicotine dependence; Z79.899 Other long term (current) drug therapy; Z98.890 Other specified postprocedural states; Z79.84 Long term (current) use of oral hypoglycemic drugs; Z79.82 Long term (current) use of aspirin; Z79.4 Long term (current) use of insulin; Z68.30 Body mass index [BMI] 30.0-30.9, adult
CPT/HCPCS: 36415; 70450; 71045; 80048; 80053; 80307; 81001; 82140; 82550; 82962; 84443; 84484; 85025; 85610; 85730; 87086; 93005; 93306; 96372; 99285; G0378; J2060; 80320; Q9967; G0480; J1815

== ENCOUNTER 2021-12-05 13:27 | Emergency (ER) | payer MEDICARE ==
[2021-12-05] MEDS ORDERED: ASPIRIN 81 MG TAB CHEW PO ONE (14:01)
--- NOTE | 2021-12-05 14:06 | Emergency Department Report ---
ED Chest Pain HPI - General Chief Complaint: Chest Pain Stated Complaint: chest pain Time Seen by Provider: 12/05/21 13:55 Source: patient Mode of arrival: Ambulatory Limitations: No Limitations - History of Present Illness Initial Comments: Patient is 65-year-old male with history of hypertension, diabetes and dementia. Patient brought to the emergency room via EMS from home for evaluation of left- sided chest pain patient stated that the pain has been going on for a few days but got worse this morning. Patient describes his pain as tightness and sharp sometimes. Patient is complaining of shortness of breath also. He denies any fever or chills. MD Complaint: chest pain -: days(s) Onset: during rest Pain Location: left chest Pain Radiation: none Severity: moderate Quality: tightness, sharp Consistency: intermittent - Related Data Home Medications Medication Instructions Recorded Confirmed Last Taken AtorvaSTATin 40 mg PO HS 08/10/21 11/02/21 Unknown Lisinopril 20 mg PO DAILY 08/10/21 11/02/21 Unknown QUEtiapine 25 mg PO HS 08/10/21 08/10/21 Unknown amLODIPine 10 mg PO DAILY 08/10/21 11/02/21 Unknown metFORMIN 500 mg PO BID 08/10/21 11/02/21 Unknown Previous Rx's Medication Instructions Recorded Last Taken Type Aspirin EC [Halfprin EC] 81 mg PO QDAY #30 tablet. 11/03/21 Unknown Rx Allergies Allergy/AdvReac Type Severity Reaction Status Date / Time No Known Allergies Allergy Verified 12/05/21 14:04 Heart Score - HEART Score History: Moderately suspicious EKG: Non-specific Age: > 65 Risk factors: > 3 risk factors or hx of atherosclerotic disease Troponin: < normal limit HEART Score: 6 - EKG Read Time Time EKG Completed: 13:48 EKG Read Time: 13:50 - Critical Actions Critical Actions: 4-6 pts:12-16.6% risk of adverse cardiac event. Should be admitted ED Review of Systems ROS: Stated complaint: chest pain Other details as noted in HPI Comment: All other systems reviewed and negative Constitutional: denies: chills, fever Respiratory: shortness of breath. denies: cough, orthopnea, SOB with exertion Cardiovascular: chest pain. denies: palpitations Gastrointestinal: denies: abdominal pain, nausea, vomiting Musculoskeletal: denies: back pain Neurological: denies: headache, weakness, numbness, paresthesias, confusion ED Past Medical Hx - Past Medical History Hx Hypertension: Yes Hx Congestive Heart Failure: No Hx Diabetes: Yes Hx Asthma: No Hx COPD: No Hx Dementia: Yes Additional medical history: dementia, vertigo - Surgical History Additional Surgical History: Large ex lap wound present but patient is unaware of what surgery was performed and for what reason - Social History Smoking Status: Former Smoker (None x10-15 years) Substance Use Type: None (Denies illicit drug use) - Medications Home Medications: Home Medications Medication Instructions Recorded Confirmed Last Taken Type AtorvaSTATin 40 mg PO HS 08/10/21 11/02/21 Unknown History Lisinopril 20 mg PO DAILY 08/10/21 11/02/21 Unknown History QUEtiapine 25 mg PO HS 08/10/21 08/10/21 Unknown History amLODIPine 10 mg PO DAILY 08/10/21 11/02/21 Unknown History metFORMIN 500 mg PO BID 08/10/21 11/02/21 Unknown History Aspirin EC [Halfprin EC] 81 mg PO QDAY #30 tablet. 11/03/21 Unknown Rx ED Physical Exam - General Limitations: No Limitations General appearance: alert, in no apparent distress - Head Head exam: Present: atraumatic, normocephalic, normal inspection - Eye Eye exam: Present: normal appearance - ENT ENT exam: Present: normal exam, normal orophraynx, mucous membranes moist - Neck Neck exam: Present: normal inspection, full ROM. Absent: tenderness, meningismus - Respiratory Respiratory exam: Present: normal lung sounds bilaterally - Cardiovascular Cardiovascular Exam: Present: regular rate, normal rhythm, normal heart sounds - GI/Abdominal GI/Abdominal exam: Present: soft, normal bowel sounds. Absent: distended, tenderness, guarding, rebound, rigid, organomegaly, mass, bruit, pulsatile mass, hernia - Extremities Exam Extremities exam: Present: normal inspection, full ROM, normal capillary refill. Absent: tenderness - Back Exam Back exam: Present: normal inspection, full ROM. Absent: CVA tenderness (R), CVA tenderness (L) - Neurological Exam Neurological exam: Present: alert, oriented X3, CN II-XII intact, reflexes norm al. Absent: motor sensory deficit - Psychiatric Psychiatric exam: Present: normal mood - Skin Skin exam: Present: warm, intact, normal color ED Course Vital Signs 0212/05/21 12/05/21 13:30 13:50 14:00 Temperature 98.2 F Pulse Rate 101 H Respiratory 16 21 Rate Blood Pressure Blood Pressure 164/102 [Left] O2 Sat by Pulse 96 96 Oximetry 12/05/21 12/05/21 12/05/21 14:01 14:15 14:31 Temperature Pulse Rate 82 84 90 Respiratory 22 18 21 Rate Blood Pressure 159/91 163/93 157/88 Blood Pressure [Left] O2 Sat by Pulse 98 96 96 Oximetry 12/05/21 12/05/21 12/05/21 14:45 15:01 15:15 Temperature Pulse Rate 85 80 89 Respiratory 17 17 16 Rate Blood Pressure 153/88 143/82 148/84 Blood Pressure [Left] O2 Sat by Pulse 95 95 96 Oximetry 12/05/21 12/05/21 15:31 15:45 Temperature Pulse Rate 95 H 83 Respiratory 18 19 Rate Blood Pressure 152/91 143/83 Blood Pressure [Left] O2 Sat by Pulse 95 96 Oximetry ED Medical Decision Making - Lab Data Result diagrams: 12/05/21 14:35 12/05/21 14:35 - EKG Data -: EKG Interpreted by Pa EKG shows normal: sinus rhythm Rate: normal - EKG Data Interpretation: no acute changes - Radiology Data Radiology results: report reviewed - Medical Decision Making Patient is 65-year-old male with history of hypertension, diabetes and dementia. Patient brought to the emergency room via EMS from home for evaluation of left-sided chest pain patient stated that the pain has been going on for a few days but got worse this morning. Patient describes his pain as tightness and sharp sometimes. Patient is complaining of shortness of breath also. He denies any fever or chills. Patient remained stable in the ER with a stable vital sign. EKG showed no ST elevation. Labs reviewed and is unremarkable including a negative troponin x2. D-dimer slightly elevated and patient had a CTA done which is negative for PE or any other pathology. Patient daughter informed the nurse that he has been having this emotional outbreak secondary to his dementia. She stated that this morning he thought that he is by himself at home while his daughter in the bathroom and he started crying and he called 911. Patient advised to follow-up with his lead java software engineer in the next 2 to 3 days and his primary care physician in the next 2 to 3 days and to return to the ER if he develop any new symptoms. Critical care attestation.: If time is entered above; I have spent that time in minutes in the direct care of this critically ill patient, excluding procedure time. ED Disposition Clinical Impression: Acute chest pain Disposition: 01 HOME / SELF CARE / HOMELESS Is pt being admited?: No Condition: Stable Instructions: Chest Pain (ED), Nonspecific Chest Pain, Adult Referrals: PRIMARY CARE, [Referring] - 3-5 Days
--- NOTE | 2021-12-05 14:25 | XRay Report ---
CHEST 1 VIEW 12/05/2021 2:02 PM INDICATION / CLINICAL INFORMATION: Chest Pain. COMPARISON: 11/01/2021 FINDINGS: SUPPORT DEVICES: None. HEART / MEDIASTINUM: No significant abnormality. LUNGS / PLEURA: Slight increased opacities in the right lung base. No pneumothorax. ADDITIONAL FINDINGS: No significant additional findings. IMPRESSION: 1. Increased opacities in the right lung base which may represent atelectasis; however, infectious pr ocess should be considered in the appropriate clinical setting. Signer Name: Dallas Mccarthy DO Signed: 12/05/2021 2:20 PM Workstation Name: [id number]
[2021-12-05 15:32] LABS: Basophils # (Auto) 0.1 K/mm3 (0.0-0.1); Eosinophils # (Auto) 0.2 K/mm3 (0.0-0.4); Eosinophils % (Auto) 2.7 % (0.0-4.3); Hematocrit 40.3 % (35.5-45.6); Hemoglobin 13.7 gm/dl (11.8-15.2); Lymphocytes # (Auto) 1.4 K/mm3 (1.2-5.4); Lymphocytes % (Auto) 23.8 % (13.4-35.0); Mean Corpuscular HGB Conc 34 % (32-34); Mean Corpuscular Volume 86 fl (84-94); Monocytes # (Auto) 0.7 K/mm3 (0.0-0.8); Monocytes % (Auto) 11.6 % (0.0-7.3); Platelet Count 276 K/mm3 (140-440); Red Blood Count 4.67 M/mm3 (3.65-5.03); Red Cell Distribution Width 13.8 % (13.2-15.2)
[2021-12-05 15:44] LABS: INR 1.02 (0.87-1.13); Partial Thromboplastin Time 28.1 Sec. (24.2-36.6)
[2021-12-05 15:52] LABS: BUN/Creatinine Ratio 11; Blood Urea Nitrogen 11 mg/dL (9-20); Calcium 10.2 mg/dL (8.4-10.2); Hemolysis Index 11
[2021-12-05 15:56] LABS: Alanine Aminotransferase 14 units/L (7-56); Albumin 4.4 g/dL (3.9-5)
[2021-12-05 16:01] LABS: Bilirubin,Direct < 0.2 mg/dL (0-0.2)
--- NOTE | 2021-12-05 17:25 | Cat Scan Report ---
CTA CHEST WITH CONTRAST INDICATION / CLINICAL INFORMATION: CHEST PAIN WITH ELEVATED D-DIMER 100 ML OMNI 350 . TECHNIQUE: Axial CT images were obtained through the chest after injection of 100 cc Omnipaque 350 IV contrast. 3 plane MIP and/or 3D reconstructions were produced. All CT scans at this location are per formed using CT dose reduction for ALARA by means of automated exposure control. COMPARISON: CTA chest 04/30/2021 FINDINGS: VASCULAR FINDINGS: PULMONARY ARTERY: Moderate motion artifact is present. Additional moderate streak artifact present se condary to column of contrast within the superior vena cava. Pulmonary artery is normal in size. No f illing defects are present compatible with pulmonary artery embolus. At the bifurcation of the right middle lobe medial segmental artery branch, linear hypoattenuation is demonstrated which on sagittal MPR series appears to represent artifact. THORACIC AORTA: No significant abnormality. CORONARY ARTERY CALCIFICATION: Present -- Moderate. NONVASCULAR FINDINGS: LOWER NECK:Soft tissues of the lower neck and thyroid demonstrate no significant abnormalities or acu te findings. HEART: Stable mild cardiomegaly. MEDIASTINUM / REANNA: No significant abnormality. ESOPHAGUS: No significant abnormality. LYMPH NODES: No adenopathy within the axilla, mediastinum, or reanna. LUNGS: Minimal apical paraseptal changes. Moderate motion artifact. Dependent atelectatic changes. PLEURA: No pleural effusion. No pneumothorax. THORACIC SOFT TISSUES: No significant abnormality of the chest wall or upper thoracic musculature. [place] Fall[place], right shoulder. BONES: No significant skeletal abnormalities. ADDITIONAL CHEST FINDINGS: None. UPPER ABDOMEN: No significant abnormality. IMPRESSION: 1. No CT evidence for pulmonary embolism. 2. No acute findings. Signer Name: Isaias Proctor II, MD Signed: 12/05/2021 5:20 PM Workstation Name: [id number]
[2021-12-05 17:42] VITALS: BP 132/87
--- NOTE | 2021-12-06 10:00 | Electrocardiograph Report ---
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
== END 2021-12-05 19:09 | disposition home or self-care (01) ==
LOC: ED 13:27
DX: R07.9 Chest pain, unspecified (principal); Z87.891 Personal history of nicotine dependence; I10 Essential (primary) hypertension
CPT/HCPCS: 36415; 71045; 71275; 80048; 80076; 83690; 83880; 84484; 85025; 85379; 85610; 85730; 93005; 93010; 99284; Q9967

== ENCOUNTER 2022-01-14 18:48 | Emergency (ER) | payer MEDICARE ==
[2022-01-14 19:31] VITALS: BP 150/92
== END 2022-01-14 19:32 | disposition left against medical advice (07) ==
LOC: ED 18:48
DX: R51.9 Headache, unspecified (principal); Z53.21 Procedure and treatment not carried out due to patient leaving prior to being seen by health care provider

== ENCOUNTER 2022-03-11 09:28 | Emergency (ER) | payer MEDICARE ==
[2022-03-11 09:47] VITALS: BP 166/90
--- NOTE | 2022-03-11 11:29 | Emergency Department Report ---
ED ENT HPI - General Chief complaint: Earache Stated complaint: CLOGGED EARS Time Seen by Provider: 03/11/22 10:25 Source: patient, EMS Mode of arrival: Ambulatory Limitations: No Limitations - History of Present Illness Initial comments: 66-year-old male presents to the ED with no complaints. Patient was brought by ambulance home states that family member stated that the patient had bilateral ear pain. Patient has a history of dementia. he is alert and oriented to place and person. Patient denies any ear pain at present. Denies any headache, pain shortness of breath. Denies any complaint at present time. No acute distress noted. No ill appearance noted - Related Data Home Medications Medication Instructions Recorded Confirmed Last Taken AtorvaSTATin 40 mg PO HS 08/10/21 11/02/21 Unknown Lisinopril 20 mg PO DAILY 08/10/21 11/02/21 Unknown QUEtiapine 25 mg PO HS 08/10/21 08/10/21 Unknown amLODIPine 10 mg PO DAILY 08/10/21 11/02/21 Unknown metFORMIN 500 mg PO BID 08/10/21 11/02/21 Unknown Previous Rx's Medication Instructions Recorded Last Taken Type Aspirin EC [Halfprin EC] 81 mg PO QDAY #30 tablet. 11/03/21 Unknown Rx Allergies Allergy/AdvReac Type Severity Reaction Status Date / Time No Known Allergies Allergy Verified 12/05/21 14:04 ED Dental HPI - General Chief complaint: Earache Stated complaint: CLOGGED EARS Time Seen by Provider: 03/11/22 10:25 Source: patient, EMS Mode of arrival: Ambulatory Limitations: No Limitations - Related Data Home Medications Medication Instructions Recorded Confirmed Last Taken AtorvaSTATin 40 mg PO HS 08/10/21 11/02/21 Unknown Lisinopril 20 mg PO DAILY 08/10/21 11/02/21 Unknown QUEtiapine 25 mg PO HS 08/10/21 08/10/21 Unknown amLODIPine 10 mg PO DAILY 08/10/21 11/02/21 Unknown metFORMIN 500 mg PO BID 08/10/21 11/02/21 Unknown Previous Rx's Medication Instructions Recorded Last Taken Type Aspirin EC [Halfprin EC] 81 mg PO QDAY #30 tablet. 11/03/21 Unknown Rx Allergies Allergy/AdvReac Type Severity Reaction Status Date / Time No Known Allergies Allergy Verified 12/05/21 14:04 ED Review of Systems ROS: Stated complaint: CLOGGED EARS Other details as noted in HPI Constitutional: denies: chills, fever Eyes: denies: eye pain, eye discharge, vision change ENT: denies: ear pain, throat pain Respiratory: denies: cough, shortness of breath, wheezing Cardiovascular: denies: chest pain, palpitations Endocrine: no symptoms reported Gastrointestinal: denies: abdominal pain, nausea, diarrhea Genitourinary: denies: urgency, dysuria Musculoskeletal: denies: back pain, joint swelling, arthralgia Skin: denies: rash, lesions Neurological: denies: headache, weakness, paresthesias Psychiatric: denies: anxiety, depression Hematological/Lymphatic: denies: easy bleeding, easy bruising ED Past Medical Hx - Past Medical History Hx Hypertension: Yes Hx Congestive Heart Failure: No Hx Diabetes: Yes Hx Asthma: No Hx COPD: No Hx Dementia: Yes Additional medical history: dementia, vertigo - Surgical History Additional Surgical History: Large ex lap wound present but patient is unaware of what surgery was performed and for what reason - Social History Smoking Status: Former Smoker (None x10-15 years) Substance Use Type: None (Denies illicit drug use) - Medications Home Medications: Home Medications Medication Instructions Recorded Confirmed Last Taken Type AtorvaSTATin 40 mg PO HS 08/10/21 11/02/21 Unknown History Lisinopril 20 mg PO DAILY 08/10/21 11/02/21 Unknown History QUEtiapine 25 mg PO HS 08/10/21 08/10/21 Unknown History amLODIPine 10 mg PO DAILY 08/10/21 11/02/21 Unknown History metFORMIN 500 mg PO BID 08/10/21 11/02/21 Unknown History Aspirin EC [Halfprin EC] 81 mg PO QDAY #30 tablet. 11/03/21 Unknown Rx ED Physical Exam - General Limitations: No Limitations General appearance: alert, in no apparent distress - Head Head exam: Present: atraumatic, normocephalic - Eye Eye exam: Present: normal appearance - ENT ENT exam: Present: mucous membranes moist - Expanded ENT Exam Expanded TM/Canal exam: Cerumen Impaction: Right TM, Left TM - Neck Neck exam: Present: normal inspection - Respiratory Respiratory exam: Present: normal lung sounds bilaterally. Absent: respiratory distress - Cardiovascular Cardiovascular Exam: Present: regular rate, normal rhythm. Absent: systolic murmur, diastolic murmur, rubs, gallop - GI/Abdominal GI/Abdominal exam: Present: soft, normal bowel sounds - Rectal Rectal exam: Present: deferred - Extremities Exam Extremities exam: Present: normal inspection - Back Exam Back exam: Present: normal inspection - Neurological Exam Neurological exam: Present: alert, oriented X3 - Psychiatric Psychiatric exam: Present: normal affect, normal mood - Skin Skin exam: Present: warm, dry, intact, normal color. Absent: rash ED Course Vital Signs 03/11/22 03/11/22 09:45 11:37 Temperature 98.3 F Pulse Rate 90 Respiratory 16 16 Rate Blood Pressure 166/90 [Left] O2 Sat by Pulse 99 98 Oximetry ED Medical Decision Making - Medical Decision Making 66-year-old male presents to the ED with no complaints. Patient was brought by ambulance home states that family member stated that the patient had bilateral ear pain. Patient has a history of dementia. She is alert and oriented to time place and person. Patient denies any ear pain at present. Denies any headache, pain shortness of breath. Denies any complaint at present time. No acute distress noted. No ill appearance noted. Physical examination patient has a cerumen impaction noted to the right ear. No other pertinent finding noted. Family member appeared at time of discharge states that the family member often called the ambulance when the patient becomes very irritated. She states that patient wears hearing aids and he often will tug on ears when he loses his hearing aid. Patient did not have hearing aids upon arrival to ED. patient daughter states he has an appointment with ENT next week. Patient's daughter also states that he often gets cerumen impaction. Rechecked the patient is resting quietly quietly and comfortable and feeling better. I discussed the results of diagnostic study, my clinical impression and the plan for further treatment with the patient. Patient daughter agrees with plan and discharge at this present time. All question addressed. I have given the patient and daughter instruction regarding a diagnosis ,expectation ,follow-up and return precaution. I explained to the patient and daughter that emergent condition may arise and to return to the ED for new worsen and any new persisting condition. I have explained the importance of following up with the primary care physician or referral physician listed below has instructed. The patient and daughter verbalized understanding of discharge instruction. Critical care attestation.: If time is entered above; I have spent that time in minutes in the direct care of this critically ill patient, excluding procedure time. ED Disposition Clinical Impression: Impacted cerumen of right ear Disposition: 01 HOME / SELF CARE / HOMELESS Is pt being admited?: No Does the pt Need Aspirin: No Condition: Stable Instructions: Earwax Buildup, Adult Additional Instructions: keep appointment with ENT has previous schedule Referrals: SENA EVANS MD [Primary Care Provider] - 3-5 Days Forms: Work/School Release Form(ED) Time of Disposition: 11:32
== END 2022-03-11 12:02 | disposition home or self-care (01) ==
LOC: ED 09:28
DX: H61.21 Impacted cerumen, right ear (principal); I10 Essential (primary) hypertension; E11.9 Type 2 diabetes mellitus without complications; J45.909 Unspecified asthma, uncomplicated; Z87.891 Personal history of nicotine dependence
CPT/HCPCS: 99283